=== PATIENT | male | born 1970 | race Caucasian/White ===

== ENCOUNTER 2022-09-10 12:21 | Emergency (ER) | payer SELFPAY ==
--- NOTE | ~2022-09-10 | XR_ITS ---
EXAMINATION: XR knee LT min 4V DATE: 09/10/2022 12:59 INDICATION: Left knee pain. TECHNIQUE: 4 views of left knee were obtained. COMPARISON: None. FINDINGS: Bone alignment is normal. No fracture. There is mild tricompartmental osteoarthritis charac terized by tiny osteophytes without joint space narrowing. No knee joint effusion. IMPRESSION: 1. Mild left knee osteoarthritis. Reviewed, dictated and finalized at location A. 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
--- NOTE | ~2022-09-10 | US_ITS ---
Duplex Sonography of the left extremity: Indication: Pain swelling Findings: Sagittal and transverse B-mode images as well as color-flow imaging were performed on the l eft femoral and popliteal veins. B-mode examination was done without and with compression in the tra nsverse plane. There is good visualization of the common femoral, proximal profunda femoral, superfi cial femoral, greater saphenous, and popliteal veins. Normal flow was seen on color-flow imaging. No rmal compressibility was demonstrated. Posterior tibial and peroneal veins are also patent. Impression: No evidence of deep vein thrombosis involving the left lower extremity. Reviewed, dictated and finalized at location M. 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
[2022-09-10 12:23] VITALS: BP 168/97; PULSE 102; RESP 18; TEMP 36.8; O2SAT 100
--- NOTE | 2022-09-10 13:22 | ED.EXTPRO ---
HPI - Extremity Problem General Chief complaint: Extremity Problem,Nontraumatic Stated complaint: left knee pain, swelling Time Seen by Provider: 09/10/22 12:32 Source: patient Mode of arrival: ambulatory Limitations: no limitations History of Present Illness HPI Narrative: This is a 52-year-old male that presents to the emergency department for a left knee injury sustained a couple of weeks ago. Reports he chronically has trouble with the left knee giving out on him. He was walking and the knee gave out on [facility]. Reports since he has had pain and swelling in the knee and going down into his foot. He has been taking ibuprofen with some relief. 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 He had some tingling in the toes of his left foot intermittently which prompted him to be seen. Denies fever, decreased range of motion, erythema, numbness, or weakness Related Data Allergies Allergy/AdvReac Type Severity Reaction Status Date / Time No Known Allergies Allergy Unknown Unverified 02/16/08 18:29 Review of Systems Review of Systems: CONSTITUTIONAL: Denies fever SKIN: Denies rash MUSCULOSKELETAL: Reports joint pain, and myalgia. NEUROLOGIC: Denies numbness, or weakness. All systems reviewed & are unremarkable except as noted in HPI and below PMFSH Past Medical History Medical History (Updated 09/10/22 @ 14:52 by Krys Norman PA-C) No active medical problems Social History Social History (Updated 09/10/22 @ 13:25 by Krys Norman PA-C) Smoking status: Current every day smoker Exam Narrative: GENERAL: Well-appearing, well-nourished, and in no acute distress. HEAD: Normocephalic, atraumatic. EYES: EOMI. EXTREMITIES: Normal range of motion. No erythema. Swelling about the left knee and into the lower leg and foot. Normal DP pulse SKIN: Warm, dry, no rash. NEURO: No focal deficits. Alert and oriented x3. PSYCH: Normal mood and affect Course Course Emergency Course: Patient updated on work-up and agrees with plan of care Vital Signs Vital signs: Vital Signs Temperature 98.3 F 09/10/22 12:23 Pulse Rate 102 H 09/10/22 12:23 Respiratory Rate 18 09/10/22 12:23 Blood Pressure 168/97 H 09/10/22 12:23 Pulse Oximetry 100 09/10/22 12:23 Oxygen Delivery Room Air 09/10/22 12:23 Temperature 98.3 F 09/10/22 12:23 Pulse Rate 102 H 09/10/22 12:23 Respiratory Rate 18 09/10/22 12:23 Blood Pressure 168/97 H 09/10/22 12:23 Pulse Oximetry 100 09/10/22 12:23 Oxygen Delivery Room Air 09/10/22 12:23 MDM - Extremity (Nontraumatic) MDM Narrative Medical decision making narrative: Patient presents to the emergency department after a left knee injury sustained a couple of weeks prior. Reporting persistent knee pain and some swelling going down into his lower leg and foot. He is afebrile and nontoxic-appearing. He is neurovascularly intact. CBC is without leukocytosis. Metabolic panel without concerning findings. Left knee x-ray shows some mild osteoarthritis. No acute osseous abnormalities or joint effusion. Left lower extremity venous Doppler without evidence of DVT. Patient was updated on work-up and agrees with plan of care. Will be given follow-up with orthopedics. He was given warnings to return to the ER Differential Diagnosis Differential diagnosis: Likely other (knee sprain, DVT, knee fracture, bakers cyst) Lab Data Attestation: I reviewed the patient's lab results. 09/10/22 13:28 09/10/22 13:28 Labs: Lab Results 09/10/22 09/10/22 09/10/22 Range/Units 13:28 13:28 13:28 WBC 7.5 (4.5-10.0) K/mm3 RBC 5.04 (4.6-6.20) M/mm3 Hgb 16.7 (14.0-18.0) g/dL Hct 48.4 (42.0-52.0) % MCV 96.0 (80-100) fl MCH 33.1 (26-34) pg MCHC 34.5 (32-36) g/dl RDW 13.5 (11.5-14.5) % Plt Count 263 (150-375) k/mm3 MPV 9.9 (7.4-10.4) fl Immature Gran % (Auto) 0.5 (0-0.5) % Neut % (Auto) 7
[2022-09-10 13:36] LABS: Basophils Absolute Auto 0.1 K/mm3 (0.0-0.1); Basophils Percent Auto 0.8 % (0.2-1.2); Eosinophils Absolute Auto 0.2 K/mm3 (0-0.3); Eosinophils Percent Auto 2.3 % (0-4.4); Hematocrit 48.4 % (42.0-52.0); Hemoglobin 16.7 g/dL (14.0-18.0); Immature Granulocyte Absolute 0.04 K/mm3 (0.00-0.031); Immature Granulocyte Percent A 0.5 % (0-0.5); Lymphocytes Percent Auto 13.4 % (18.3-44.2); Mean Corpuscular HGB Conc 34.5 g/dl (32-36); Mean Corpuscular Hemoglobin 33.1 pg (26-34); Mean Platelet Volume 9.9 fl (7.4-10.4); Monocytes Absolute Auto 0.7 K/mm3 (0.1-0.6); Monocytes Percent Auto 9.5 % (2.6-8.5); Neutrophils Absolute Auto 5.5 K/mm3 (1.3-6.7); Neutrophils Percent Auto 73.5 % (45.5-73.1); Platelet Count Result 263 k/mm3 (150-375); Red Blood Count 5.04 M/mm3 (4.6-6.20); Red Cell Distribution Width 13.5 % (11.5-14.5); White Blood Count 7.5 K/mm3 (4.5-10.0)
[2022-09-10 13:46] LABS: Anion Gap 6 mmol/L (8-16); Blood Urea Nitrogen 13 mg/dL (9-20); Calcium 9.1 mg/dL (8.4-10.2); Carbon Dioxide 27 mmol/L (22-30); Chloride 101 mmol/L (98-107); Estimated CRCL calculation 123 ml/min; Estimated Glomerular Filt Rate > 60; Glucose 146 mg/dL (65-110); Sodium 134 mmol/L (137-145)
[2022-09-10 13:47] LABS: Prothrombin Time 12.4 Seconds (11.1-14.7)
[2022-09-10 13:48] LABS: Partial Thromboplastin Time 29.4 SECONDS (22.3-36.8)
[2022-09-10 14:57] VITALS: BP 149/97; PULSE 96; RESP 18; O2SAT 100
== END 2022-09-10 14:58 | disposition home or self-care (01) ==
PROVIDERS: Emergency Provider Physician Assistant; PCP Family Medicine
DX: S83.92XA Sprain of unspecified site of left knee, initial encounter (principal); F17.200 Nicotine dependence, unspecified, uncomplicated; M17.12 Unilateral primary osteoarthritis, left knee; W18.39XA Other fall on same level, initial encounter
CPT/HCPCS: 36415; 73564; 80048; 85025; 85610; 85730; 93971; 99284

== ENCOUNTER 2024-02-25 08:29 | Inpatient (IN) | payer MEDICAID, SELFPAY ==
[2024-02-25] VITALS (16 sets, daily range): BP systolic 150–176; BP diastolic 93–127; PULSE 62–129; RESP 14–30; TEMP 36.6–36.9; O2SAT 94–97; BMI 29.9
--- NOTE | ~2024-02-25 | XR_ITS ---
XR chest 1V 02/25/2024 09:03 Indication: Altered mental status. Tremor. Procedure: AP view of the chest Comparison: No prior studies for comparison. Findings: Heart size normal. No focal air space disease, pulmonary edema, pleural effusion or suspect ed pneumothorax. Impression: 1: No acute cardiopulmonary disease. Reviewed, dictated and finalized at location B. Impression: 1: No acute cardiopulmonary disease.
--- NOTE | ~2024-02-25 | MR_ITS ---
EXAMINATION: MR brain/brain stem wo/w con DATE: 02/26/2024 12:47 INDICATION: Confusion, tremor and possible seizures TECHNIQUE: Magnetic resonance imaging (MRI) of the brain and brainstem was performed without and with 20 mL Multihance intravenous contrast. Sequences included sagittal and axial T1-weighted SE, axial d iffusion-weighted FS SE, axial T2*-weighted GRE, axial 3D SWAN, axial T2-weighted FLAIR, and axial T2 -weighted FSE. Postcontrast axial and coronal T1-weighted SE was obtained. Apparent diffusion coeffic ient (ADC) maps were created. COMPARISON: Head CT dated 02/25/2024 FINDINGS: There are no areas of restricted diffusion to suggest acute infarction. No intracranial hemorrhage or abnormal intracranial mass lesion. A few small infarcts in the bilateral cerebellar hemispheres. The re are scattered areas of nonspecific increased T2-weighted signal intensity in the cerebral white ma tter, predominantly involving the deep and periventricular white matter which is within normal limits for age and likely represents sequela of chronic small vessel ischemic disease.. There are no intrap arenchymal signal abnormalities seen on the other pulse sequences. The ventricles are symmetric and n ormal in size. There are no abnormal extra-axial fluid collections. Flow voids are seen in the cerebr al arteries on the T2-weighted sequences consistent with their expected patency. Left vertebral arter y is dominant. Mild mucosal thickening the bilateral ethmoid sinuses. Small amount of dependent mucus in the bilateral maxillary sinuses. Visualized orbits and soft tissues are unremarkable. There are n o areas of abnormal enhancement on the post contrast images. IMPRESSION: 1. No acute intracranial process. 2. A few small infarcts in the bilateral cerebellar hemispheres and small amount of scattered mesente daniella white matter T2 hyperintensity likely sequela of chronic small vessel ischemic disease. Reviewed, dictated and finalized at location A. IMPRESSION: 1. No acute intracranial process. 2. 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
--- NOTE | ~2024-02-25 | XR_ITS ---
Portable chest x-ray Comparison: 02/25/2024 Clinical History: Chest pain Findings: Questionable minimal haziness right mid lung. Left lung clear. Cardiomediastinal silhouet te is stable. Bones and soft tissues are unremarkable. Impression: Questionable minimal haziness right mid lung. Correlate for subtle pneumonia. Reviewed, dictated and finalized at [facility]. Impression: Questionable minimal haziness right mid lung. Correlate for subtle pneumonia.
--- NOTE | ~2024-02-25 | US_ITS ---
EXAMINATION: US carotid duplex BI DATE: 02/26/2024 20:20 INDICATION: Cerebrovascular disease with acute infarcts TECHNIQUE: Grayscale, color Doppler, and pulsed Doppler images of the cervical carotid arteries were obtained. The degree of vessel stenosis is placed in one of the following categories: normal, <50%, 5 0-69%, >=70% but less than near-occlusion, near-occlusion, or total occlusion. Note that percent sten osis relative to normal distal artery lumen diameter is indirectly measured from velocity measurement s as described by Tc, et al. Radiology 2003; 229:340-346. COMPARISON: None. FINDINGS: RIGHT: The right common carotid artery (CCA) peak systolic velocity (PSV) is 66 cm/s. The right internal car otid artery (ICA) PSV is 54 cm/s. The right ICA end-diastolic velocity (EDV) is 23 cm/s. The right IC A/CCA PSV ratio is 0.8. Grayscale and color Doppler images yield an estimate of <50% diameter reducti on from plaque in the ICA. The external carotid artery (ECA) PSV is 66 cm/s. There is antegrade flow in the right vertebral artery. LEFT: The left CCA PSV is 97 cm/s. The left ICA PSV is 59 cm/s. The left ICA EDV is 20 cm/s. The left ICA/C CA PSV ratio is 0.6. Grayscale and color Doppler images yield an estimate of <50% diameter reduction from plaque in the ICA. The ECA PSV is 77 cm/s. There is antegrade flow in the left vertebral artery. IMPRESSION: 1. <50% stenosis in the right internal carotid artery. 2. <50% stenosis in the left internal carotid artery. Reviewed, dictated and finalized at location A.
--- NOTE | ~2024-02-25 | CT_ITS ---
EXAMINATION: CT BRAIN W/O DATE: 02/25/2024 09:01 INDICATION: Altered mental status TECHNIQUE: Computed tomography (CT) of the head was performed without intravenous contrast. The dose- length product was 756.67 mGy-cm. Automated exposure control and iterative reconstruction technique w ere employed. COMPARISON: No prior studies for comparison. FINDINGS: Normal brain parenchymal volume for age. Normal yi-white differentiation. No acute intrac ranial hemorrhage, infarction, mass or mass effect. There is a small chronic lacunar infarction of th e left cerebellum. There are scattered mild periventricular and subcortical white matter changes, mos t likely related to small vessel ischemic disease (microangiopathy). No ventriculomegaly or midline shift. Midline sagittal images demonstrate a normal corpus callosum, c raniovertebral junction and sella turcica. Basilar cisterns are patent. Paranasal sinuses and mastoids are pneumatized. No depressed skull fractures. IMPRESSION: 1. No acute intracranial abnormality. 2: Small chronic left cerebellar infarction. Reviewed, dictated and finalized at location B.
--- NOTE | ~2024-02-25 | CT_ITS ---
EXAMINATION: CTA chest DATE: 03/01/2024 14:38 INDICATION: Shortness of breath. TECHNIQUE: Computed tomographic angiography (CTA) of the chest was performed with 100 mL Omnipaque-35 0 intravenous contrast. Automated exposure control and iterative reconstruction technique were employ ed. The dose-length product was 612.72 mGy-cm. Maximum intensity projection 3D-reconstructions of the aorta and other arteries were constructed by the technologist on a separate workstation. COMPARISON: None. FINDINGS: There is mild emphysema. There is mild atelectasis bilaterally. There are peripheral ground glass opacities in right middle lobe and right upper lobe. No pleural effusion. The heart size is nor mal. No pericardial effusion. There are coronary artery calcifications. There is no pulmonary embolus . There is mild aortic atherosclerosis. No aneurysm or dissection. Bilateral gynecomastia is noted. T here is cortical thinning of left kidney. There is mild thoracic spondylosis. IMPRESSION: 1. Mild aortic atherosclerosis. No aneurysm or dissection. 2. Mild emphysema. 3. Groundglass opacities in right upper lobe and right middle lobe, consistent with mild pneumonia ve rsus mild pulmonary edema. Reviewed, dictated and finalized at location A. IMPRESSION: 1. Mild aortic atherosclerosis. No aneurysm or dissection. 2. Mild emphysema. 3. Groundglass opacities in right upper lobe and right middle lobe, consistent with mild pneumonia versus mild pulmonary edema.
--- NOTE | 2024-02-25 08:43 | ED.AMS ---
HPI - Altered Mental Status General Chief Complaint: Altered Mental Status Stated Complaint: AMS Time Seen by Provider: 02/25/24 08:35 History of Present Illness HPI narrative: Pt presents with altered mental status and shakiness this morning. Per . Pt was confused and not acting right. Was confusing bottle of water with nasal spray and tried to drink nasal spray. Pt was smelling burnt toast when there was no toast made and was making inappropriate comments when questioned. the symptoms were first noted at 0530 but not sure if started prior to this because was asleep. Pt right side seems to be not responding right. Pt can move it but is having trouble controlling it. Pt has shakes. Pt is regular drinker and has pint of vodka each evening and drank last night but has never had DT's or seizures. Related Data Home Medications Medication Instructions Recorded Confirmed No Home Medications 02/25/24 02/25/24 Allergies Allergy/AdvReac Type Severity Reaction Status Date / Time No Known Allergies Allergy Unknown Unverified 02/16/08 18:29 Review of Systems Review of Systems: All systems reviewed & are unremarkable except as noted in HPI and below PMFSH Past Medical History Medical History (Updated 02/25/24 @ 10:40 by James Edwards III, DO) No active medical problems Social History Social History (Updated 09/10/22 @ 13:25 by Krys Norman PA-C) Smoking packs per day: 1 Smoking cigarettes per day: 20.0 Years smoked: 45 Smoking pack-years: 45.00 Smoking status: Current every day smoker Tobacco type: cigarettes Additional smoking assessment comments: smoking since grade school Alcohol intake: current Substance use: never Last use: pt drinks 1l vodka daily- last drink was yesterday Do You Feel Safe in your Home?: Yes Lack of Transportation: No Lack of Food: Sometimes True Current Housing: I Have Housing Concerned About Future Housing: YES Difficulty Paying Gas/Electric Bills: No Difficulty Paying for Meds: YES Currently Unemployed: YES Education: Don't Know Difficulty w/ Childcare or Family Care: No Spiritual care concerns: No Exam Const: General: healthy appearing and no acute distress Nutritional Appearance: well nourished Orientation/consciousness: patient oriented x3 Limitations: altered mental status HENMT: Head: normal to inspection Mouth: Yes Normal oral and palatal mucosa present Eyes: Conjunctivae: conjunctivae normal Pupils: Equal, round and reactive pupils present Neck: Neck: normal visual inspection Resp: Effort & Inspection: normal respiratory effort Auscultation: clear to auscultation bilaterally Cardio: Rate: regular rate Rhythm: regular rhythm GI: GI Palp: Yes Soft to palpation Auscultation: normal bowel sounds Skin: General skin exam: normal color Rashes: no rashes Neuro: Cranial nerves: Yes Nystagmus present Other: pt answers some question appropriately and others makes no sense. Pt has good strength but has trouble controlling right side especially RLE. Extrem: General: normal to inspection and no clubbing, cyanosis or edema Psych: Affect: normal affect Attitude: cooperative Course Vital Signs Vital signs: Vital Signs Temperature 98 F 02/25/24 08:36 Pulse Rate 129 H 02/25/24 08:36 Respiratory Rate 18 02/25/24 08:36 Blood Pressure 170/127 H 02/25/24 08:36 Pulse Oximetry 95 02/25/24 08:36 Oxygen Delivery Room Air 02/25/24 08:36 Temperature 98.4 F 02/25/24 14:00 Pulse Rate 110 H 02/25/24 17:12 Respiratory Rate 28 H 02/25/24 14:00 Blood Pressure 153/93 H 02/25/24 18:01 Pulse Oximetry 96 02/25/24 14:00 Oxygen Delivery Room Air 02/25/24 15:28 MDM - Altered Mental Status MDM Narrative Medical decision making narrative: Pt presents with confusion and difficulty controlling right side and shakes. CT and CVA ork up initiated. EKG non acute CT shows no b
[2024-02-25 08:45] LABS: Glucose Point of Care 162 mg/dl (65-105)
[2024-02-25] MEDS: SODIUM CHLORIDE 0.9% IV 1,000 ML 999 ML IV CONT (08:48)
[2024-02-25 09:15] LABS: Basophils Absolute Auto 0.1 K/mm3 (0.0-0.1); Basophils Percent Auto 0.6 % (0.2-1.2); Eosinophils Percent Auto 0.2 % (0-4.4); Hematocrit 49.2 % (42.0-52.0); Immature Granulocyte Absolute 0.05 K/mm3 (0.00-0.031); Immature Granulocyte Percent A 0.4 % (0-0.5); Lymphocytes Absolute Auto 0.65 K/mm3 (0.9-3.2); Lymphocytes Percent Auto 5.6 % (18.3-44.2); Mean Corpuscular HGB Conc 34.6 g/dl (32-36); Mean Corpuscular Hemoglobin 32.8 pg (26-34); Mean Platelet Volume 10.5 fl (7.4-10.4); Monocytes Absolute Auto 0.9 K/mm3 (0.1-0.6); Monocytes Percent Auto 7.7 % (2.6-8.5); Neutrophils Percent Auto 85.5 % (45.5-73.1); Platelet Count Result 232 k/mm3 (150-375); Red Blood Count 5.18 M/mm3 (4.6-6.20); White Blood Count 11.7 K/mm3 (4.5-10.0)
[2024-02-25 09:28] LABS: Acetaminophen < 10 ug/mL (10-30); Ammonia < 9 umol/L (9-30); Ethanol < 10 mg/dL (<10); Salicylate < 1.0 mg/dL (2-20)
[2024-02-25 09:29] LABS: INR 0.9; Prothrombin Time 12.7 Seconds (11.1-14.7)
[2024-02-25 09:30] LABS: Partial Thromboplastin Time 26.5 Seconds (22.3-36.8)
[2024-02-25 09:44] LABS: Alanine Aminotransferase 59 U/L (6-50); Albumin Level 4.7 g/dL (3.5-5.1); Alkaline Phosphatase 91 U/L (38-126); Anion Gap 15 mmol/L (4-12); Aspartate Amino Transferase 48 U/L (17-59); Bilirubin,Total 0.6 mg/dL (0.2-1.3); Blood Urea Nitrogen 9 mg/dL (9-20); Calcium 9.5 mg/dL (8.4-10.2); Carbon Dioxide 21 mmol/L (22-30); Chloride 106 mmol/L (98-107); Estimated CRCL calculation 111 ml/min; Estimated Glomerular Filt Rate > 60; Glucose 150 mg/dL (65-110); Potassium 3.4 mmol/L (3.4-5.0); Sodium 142 mmol/L (137-145)
[2024-02-25 09:56] LABS: Troponin I 0.015 ng/mL (0.000-0.034)
[2024-02-25 09:57] LABS: Lactic Acid Reflex 1.3 mmol/L (0.7-2.0)
[2024-02-25 11:23] LABS: Appearance Urine Clear (Clear); Bacteria Urine None Seen /hpf; Bilirubin Urine Negative (Negative); Blood Urine Negative (Negative); Color Urine Dark Yellow (Yellow); Glucose Urine UA Negative (Negative); Ketones Urine Trace mg/dL (Negative); Leukocyte Esterase Ur Negative LEU/UL (Negative); Nitrate Urine Negative (Negative); Non Pathogenic Casts 0-2; Protein Urine 1+ mg/dL (Negative); RBC Urine 0-2 /hpf (0-2); Specific Grav Ur 1.019 (1.001-1.035); Squamous Epithelial Cell Urine None Seen /hpf (Few); WBC Urine 0-5 /hpf (0-3)
[2024-02-25 11:26] LABS: Add Urine Microscopic? YES
[2024-02-25] MEDS: LORazepam INJ (*CRX) 2 MG/ML VIAL 1 MG IV PUSH (11:41)
[2024-02-25 11:46] LABS: Barbiturate Screen Urine Negative (Negative); Benzodiazepines Screen Urine Negative (Negative)
[2024-02-25 11:49] LABS: Amphetamine Screen Urine Negative (Negative); Cannabinoid Screen Urine Negative (Negative); Cocaine Screen Urine Negative (Negative); Methadone Screen Urine Negative (Negative); Opiate Screen Urine Negative (Negative); Phencyclidine Screen Urine Negative (Negative)
--- NOTE | 2024-02-25 12:54 | PC.NURSE ---
Per , patient drinks daily and has for the last 3 years. patient states he only drinks a pint a day, but states patient drinks more than that
--- NOTE | 2024-02-25 13:18 | ADMGEN ---
This patient, Bernardo Avelar, was admitted to Virtual Bed 3rd Floor-1. Patient/family oriented to hospital policies and general routines including ID bracelet, bed and alarms, visiting hours, pain management, procedures, bathroom and other care routines, personal items, smoking policy, room service/diet, and visiting hours. Information on how to activate the Rapid Response Team has been discussed. Patient/Family are encouraged to report perceived risks to care and to ask questions if they do not understand what they are told or what they should do.
--- NOTE | 2024-02-25 14:45 | PC.NURSE ---
Patient's spouse states that he drinks 1 handle of vodka over 2-3days. She reports patient drank his normal amount yesterday 02/23 prior to finding him this 02/25/24 at 0530 in an altered state
--- NOTE | 2024-02-25 16:10 | PM.IMHP ---
H&P: HPI History of Present Illness Date/Time: 02/25/24 16:10 Chief Complaint: Altered mental status. Narrative: This is a 53-year-old male smoker with history of alcohol abuse who presented to the emergency department via private vehicle from home accompanied by his for evaluation of altered mental status. The patient is able to provide some history however his provides the majority of the following given his confusion. He drinks a little over a pint of vodka each day and has for many years. He consumes his alcohol in the evenings after work and before he goes to bed. Last night he drank alcohol as per usual and seemed to be in his usual state of health. At a by 05:30 the patient's heard him making noise in the bedroom and when she entered the room she found that he had knocked over many items on his bedside table and he was sitting at the edge of the bed in a confused state. She noticed tremoring in his arms, more so on the right. He was attempting to drink nasal spray which he thought was water and he reported swelling burnt toast when there was no toast made. In the emergency department his noticed that he had frequent episodes where he seemed to go unresponsive with fine tremors of the arms and snoring respirations however his eyes were reportedly wide open. He did not appear to have suffered any falls or injury and there was no incontinence noted. He has never exhibited similar symptoms nor has he ever had symptoms of alcohol withdrawal or seizures. They were in [place] recently and he got many mosquito bites but has not exhibited any illness or fevers. He has not had any recent change in medication and he denies drug use. In the ED: He has been afebrile since arrival. Blood pressures have been as high as 174/114 (no known history of hypertension). He has been in sinus tachycardia with rates in the low 100s. Labs are significant for a WBC count of 11.7, carbon dioxide 21, anion gap 15, glucose 150, magnesium 1.5, ALT 59, CRP 0.8, procalcitonin 0.1, TSH 2.390, ammonia less than 9. Ethyl alcohol level was less than 10. Urine drug screen was negative. Urine was positive for 1+ protein and trace ketones. Head CT showed no acute intracranial abnormality but did note a small chronic left cerebellar infarction which is unknown to the patient and his . Chest x-ray showed no acute cardiopulmonary disease. He was given IV lorazepam and liter normal saline bolus and is being admitted in this setting for close monitoring and further evaluation. Review of Systems Review of Systems: 12 systems were reviewed and are negative except for as per HPI. [facility] Past Medical History Medical History (Updated 02/25/24 @ 21:10 by Eufemia Carter PA-C) Alcohol abuse Diverticulitis Tobacco dependence Surgical History Surgical History (Updated 02/25/24 @ 21:03 by Eufemia Carter PA-C) History of nasal septoplasty Status post urethral surgery As a child. Family History Family History (Updated 02/25/24 @ 21:03 by Eufemia Carter PA-C) Other Family history non-contributory Social History Social History (Updated 02/25/24 @ 21:04 by Eufemia Carter PA-C) Social History: Surrogate medical decision maker: Antonette Avelar, spouse. Code status: Full code. Smoking packs per day: 1 Smoking cigarettes per day: 20.0 Years smoked: 45 Smoking pack-years: 45.00 Smoking status: Current every day smoker Tobacco type: cigarettes Additional smoking assessment comments: Smoked since grade school. Alcohol intake: current Alcohol use details: At least 1 pint of vodka a day. Substance use: never Last use: pt drinks 1l vodka daily- last drink was yesterday Do You Feel Safe in your Home?: Yes Lack of Transportation: No Lack of Food: Sometimes True Current Housing: I Have Housing Concerned About Future Housing: YES Difficulty Paying Gas/Electric Bills: No Difficulty Paying for Meds: YES Joann
[2024-02-25] MEDS: LABETALOL HCL INJ 100 MG/20 ML VIAL 10 MG IV PUSH (17:12)
[2024-02-25] MEDS: DEXTROSE 5%/0.9% SOD CHL 1,000 ML 150 ML IV CONT (17:12)
[2024-02-25] MEDS: chlordiazePOXIDE (*CRX) 10 MG CAPSULE PO (17:13)
[2024-02-25] MEDS: THIAMINE HCL 200 MG/2 ML VIAL 100 MG IV PUSH (17:13)
[2024-02-25] MEDS: NICOTINE (*PBKC) 21 MG PATCH 1 PATCH TRANSDERM ×2 (17:55→21:20)
[2024-02-25 18:16] LABS: Influenza A QL RT-PCR Negative (Negative); Influenza B QL RT-PCR Negative (Negative); RSV RNA, RT-PCR Negative (Negative); SARS-CoV-2 RNA PCR Negative (Negative)
[2024-02-25 18:46] LABS: CRP 0.8 mg/dL (<1.0); Magnesium 1.5 mg/dL (1.6-2.3)
[2024-02-25 19:35] LABS: Procalcitonin 0.1 ng/mL
[2024-02-25] MEDS: LORazepam INJ (*CRX) 2 MG/ML VIAL IV PUSH ×2 (21:10→22:25)
[2024-02-25] MEDS: MAGNESIUM SULF 2 GM/WATER 50ML 2 GM/50 ML BAG IVPB (21:10)
--- NOTE | 2024-02-25 22:40 | PC.NURSE ---
2040 Notified Eufemia HALL about patient BP 169/100 HR 83 and too early give PRN labetalol. Eufemia asked for CIWA to be done. CIWA at 2039 was 9. New orders for PRN IV ativan given. Eufemia says to give 2mg IV ativan and then recheck BP in 30 Mins. 2109 IV ativan given 2199 Notified Eufemia of BP [id number] HR 100 and patient becoming more agitated and speech becoming more nonsensical. 2214 New CIWA score 20 Notified Eufemia. New order received for another Ativan 2 mg IVP and transfer orders to IMU. 0 IV Ativan given per orders. Patient conts to have increased agitation and picking a pulling lines. 0 Patient transferred to IMU . Report given at bedside to Chong HARRIS.
--- NOTE | 2024-02-25 23:06 | PC.NURSE ---
This patient, Bernardo Avelar, was received from [facility] on 02/25/24 at 2220. Patient/family oriented to unit policies and routines
[2024-02-25] MEDS: LACTATED RINGERS 1,000 ML 999 ML IV CONT (23:32)
[2024-02-25] MEDS: dexmedeTOMIDine 400 MCG/100 ML 400 MCG/100 ML BAG IV CONT (23:32)
--- NOTE | 2024-02-25 23:34 | PC.NURSE ---
This patient, Bernardo Avelar, was received from [[id number]] on 02/25/24 at 2334. Patient/family oriented to unit policies and routines
--- NOTE | 2024-02-25 23:37 | PC.NURSE ---
This patient, Bernardo Avelar, was transferred to ICU on 02/25/24 at 2330. Personal belongings sent with patient. Report given to STEVEN Bolden. Appropriate documentation sent with patient.
--- NOTE | 2024-02-25 23:39 | PC.NURSE ---
Patient arrived to IMU 205-2 from 307 at 2220. Patient had received a total of 4 mg Ativan prior to transfer. Patient came to IMU very agitated and pulling equipment/clothes off with a CIWA of 36. I spoke to RAFAEL Alston, who made the decision to transfer the patient to ICU for Precedex drip. Patient transferred to ICU 5. Report given to STEVEN Bolden.
[2024-02-26] VITALS (22 sets, daily range): BP systolic 131–170; BP diastolic 77–110; PULSE 63–94; RESP 15–30; TEMP 36.5–37.2; O2SAT 91–97
--- NOTE | 2024-02-26 | ECHO_ITS ---
Patient Info Name: Bernardo Avelar Age: 53 years : 1970 Gender: Male Ht: 71 in Wt: 214 lbs BSA: 2.23 m2 HR: 69 bpm BP: 159 / 96 mmHg Technical Quality: Good Exam Date: 02/26/2024 7:47 AM Exam Location: Echo Lab Patient Status: Inpatient Admit Date: 02/26/2024 Staff Ordering Physician: Eufemia Carter PA-C Learning Officer: Soren Gutierrez RDCS Attending Provider: Niurka Lema MD Referring Physician: Raul SEXTON; Exam Type: CA echo doppler color flow Study Info Indications - Confusion - HTN Complete two-dimensional, color flow and Doppler transthoracic echocardiogram is performed. Summary 1. Complete two-dimensional, color flow and Doppler transthoracic echocardiogram is performed. 2. Left ventricular systolic function is severely globally reduced, estimated at 30-35%. 3. Left ventricular chamber dimension is moderately enlarged. 4. The left ventricular diastolic function is abnormal. 5. E/e' 10 is mildly elevated. 6. Global longitudinal strain is abnormal at -13.7%. 7. Left atrial chamber dimension is mildly enlarged. 8. There is mild aortic valve sclerosis. 9. There is mild mitral valve regurgitation. 10. No pulmonary hypertension, estimated pulmonary arterial systolic pressure is 31 mmHg. Left Ventricle E/e' 10 is mildly elevated. Global longitudinal strain is abnormal at -13.7%. Left ventricular systolic function is severely globally reduced, estimated at 30-35%. Left ventricular chamber dimension is moderately enlarged. The left ventricular diastolic function is abnormal. Right Ventricle Right ventricular systolic function is normal and with normal TAPSE 2.2 cm. Right ventricular chamber dimension is normal. Left Atria Left atrial chamber dimension is mildly enlarged. Right Atria Right atrial chamber dimension is normal. Aortic Valve The aortic valve is trileaflet. There is mild aortic valve sclerosis. There is no aortic valve stenosis. There is no aortic valve regurgitation. Pulmonic Valve There is no pulmonic regurgitation. Mitral Valve There is no mitral valve stenosis. There is mild mitral valve regurgitation. Tricuspid Valve There is no tricuspid valve regurgitation. No pulmonary hypertension, estimated pulmonary arterial systolic pressure is 31 mmHg. Pericardium/Pleural There is no pericardial effusion. Inferior Vena Cava Normal inferior vena cava with >50% collapse upon inspiration consistent with normal right atrial pressure, 5 mmHg. Aorta The aortic root size at the sinus of Valsalva is normal. Left Ventricular Outflow Tract Name Value Normal LVOT 2D LVOT Diameter 2.1 cm LVOT Doppler LVOT Peak Gradient 3 mmHg LVOT Mean Gradient 1 mmHg LVOT VTI 15 cm LVOT VTI/AV VTI Ratio 0.6 LVOT Stroke Volume 52 ml LVOT CO 3.5 l/min LVOT CI 1.6 l/min/m2 Pulmonic Valve Name Value Normal
--- NOTE | 2024-02-26 00:05 | PC.NURSE ---
This patient, Bernardo Avelar, was received from [facility] on 02/26/24 at 2330. Patient/family oriented to unit policies and routines
--- NOTE | 2024-02-26 02:13 | PC.NURSE ---
Patient extremely agitated trying to get out of bed and combative with staff. Received orders from Dr. Gallegos to increase Precedex drip to 0.7 mcg. Will continue to monitor.
[2024-02-26] MEDS: dexmedeTOMIDine 400 MCG/100 ML 400 MCG/100 ML BAG 14.61 MCG IV CONT ×2 (04:29→21:11)
[2024-02-26 05:00] LABS: Hematocrit 43.4 % (42.0-52.0); Mean Corpuscular HGB Conc 34.6 g/dl (32-36); Mean Corpuscular Hemoglobin 33.1 pg (26-34); Mean Corpuscular Volume 95.8 fl (80-100); Mean Platelet Volume 10.7 fl (7.4-10.4); Platelet Count Result 169 k/mm3 (150-375); Red Blood Count 4.53 M/mm3 (4.6-6.20); Red Cell Distribution Width 13.9 % (11.5-14.5); White Blood Count 8.1 K/mm3 (4.5-10.0)
[2024-02-26 05:13] LABS: Alanine Aminotransferase 43 U/L (6-50); Albumin Level 3.9 g/dL (3.5-5.1); Alkaline Phosphatase 75 U/L (38-126); Anion Gap 13 mmol/L (4-12); Aspartate Amino Transferase 35 U/L (17-59); Blood Urea Nitrogen 7 mg/dL (9-20); Calcium 8.9 mg/dL (8.4-10.2); Carbon Dioxide 22 mmol/L (22-30); Chloride 101 mmol/L (98-107); Estimated CRCL calculation 127 ml/min; Estimated Glomerular Filt Rate > 60; Glucose 124 mg/dL (65-110); Magnesium 1.8 mg/dL (1.6-2.3); Potassium 3.3 mmol/L (3.4-5.0); Sodium 136 mmol/L (137-145)
--- NOTE | 2024-02-26 08:05 | WPDCNINT ---
Assessment and Plan Assessment and plan (1) Altered mental status: Code(s): R41.82 - Altered mental status, unspecified Status: Acute Assessment and Plan: 02/25/2024: Patient presented the ED with altered mental status, tremors, confusion, delirium -alcohol levels were <10, ammonia levels were < 9 -CT scan of the brain on admission did not show any acute intracranial abnormality, small left chronic cerebellar infarcts -patient tremors had worsened overnight, CIWA scores were elevated requiring more Ativan -patient was accepted to the ICU for dexmedetomidine/Precedex infusion -continue CIWA protocol with p.r.n. Ativan -withdrawal precautions with bedside sitter (2) Alcohol abuse: Code(s): F10.10 - Alcohol abuse, uncomplicated Status: Acute Assessment and Plan: Patient drinks more than 1 pint of vodka every evening, -on arrival his alcohol level were <10 -came in with tremors, confusion, altered mental status, delirium -patient was given multiple doses of Ativan -now on Precedex infusion, continues to show signs of tremors but more awake, alert, oriented x3, follows simple commands in all extremities and answers to questions -will continue Precedex for now and continue to monitor -patient does have p.r.n. Ativan and CIWA protocol on board -will start Librium 25 mg p.o. q.6 hours -continue folic acid and thiamine (3) Tobacco dependence: Code(s): F17.200 - Nicotine dependence, unspecified, uncomplicated Status: Acute Assessment and Plan: Patient smokes 1 packet per day for almost 45 years. 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 on cessation of smoking and will continue to reiterate (4) Elevated blood pressure reading: Code(s): R03.0 - Elevated blood-pressure reading, without diagnosis of hypertension Status: Acute Assessment and Plan: Elevated blood pressures could be related to alcohol withdrawal -will add low-dose amlodipine (5) Electrolyte imbalance: Code(s): E87.8 - Other disorders of electrolyte and fluid balance, not elsewhere classified Status: Acute Assessment and Plan: Replace potassium and magnesium Plan DVT prophylaxis: SCDs Stress ulcer prophylaxis: Not indicated Nutrition: Regular diet Code Status: Full code Critical Care Time Spent: 48 minutes Due to a high probability of clinically significant, life threatening deterioration, the patient required my highest level of preparedness to intervene emergently and I personally spent this critical care time directly and personally managing the patient. This critical care time included obtaining a history; examining the patient; pulse oximetry; ordering and review of studies; arranging urgent treatment with development of a management plan; evaluation of patient's response to treatment; frequent reassessment; and discussions with other providers. It was exclusive of separately billable procedures and treating other patients and teaching time. Please see Assessment and Plan section and the rest of the note for further information on patient assessment and treatment This dictation may have been done utilizing a voice recognition system. Attempts have been made to correct errors. However, there may be uncorrected grammatical, spelling, and recognitions errors present. Urban Planner Consult Note Consult date: 02/27/24 Reason for consult: Alcohol intoxication and/or alcohol withdrawal, altered mental status, delirium, confusion, tremors HPI: Bernardo Avelar is a 53 year old male with past medical history of alcohol abuse, presented the ED from home accompanied by his for evaluation of altered mental status. Patient was found to be confused with altered mental status, delirium and tremors geospatial technologist on 02/25/2024. According the records dove found him having knocked over many things on his bedside table and he was confused and was having olfactory hallucination (he reported smelling but toast), kaylyn
[2024-02-26] MEDS: FOLIC ACID 1 MG TABLET PO (08:33)
[2024-02-26] MEDS: POTASSIUM CHLORIDE 20 MEQ PACKET (FOR LIQUID) 40 MEQ PO (08:33)
[2024-02-26] MEDS: THIAMINE HCL 100 MG TABLET PO (08:33)
[2024-02-26 08:42] LABS: Glucose Point of Care 148 mg/dl (65-105)
[2024-02-26] MEDS: MAGNESIUM SULF 2 GM/WATER 50ML 2 GM/50 ML BAG IVPB (09:00)
[2024-02-26] MEDS: amLODIPine BESYLATE 5 MG TABLET PO (11:51)
[2024-02-26] MEDS: chlordiazePOXIDE (*CRX) 25 MG CAPSULE PO ×2 (11:51→17:40)
[2024-02-26 11:55] LABS: Glucose Point of Care 169 mg/dl (65-105)
[2024-02-26] MEDS: LORazepam INJ (*CRX) 2 MG/ML VIAL IV PUSH (12:07)
[2024-02-26] MEDS: dexmedeTOMIDine 400 MCG/100 ML 400 MCG/100 ML BAG 12.18 MCG IV CONT (13:12)
--- NOTE | 2024-02-26 15:27 | PM.IMPN ---
Progress Note: A&P Assessment and Plan (1) Altered mental status: Code(s): R41.82 - Altered mental status, unspecified Status: Acute (2) Elevated blood pressure reading: Code(s): R03.0 - Elevated blood-pressure reading, without diagnosis of hypertension Status: Acute (3) Alcohol abuse: Code(s): F10.10 - Alcohol abuse, uncomplicated Status: Acute (4) Hypomagnesemia: Code(s): E83.42 - Hypomagnesemia Status: Acute (5) Tobacco dependence: Code(s): F17.200 - Nicotine dependence, unspecified, uncomplicated Status: Acute Plan The patient presented to the emergency department for evaluation of altered mental status as detailed in HPI. Labs, imaging, EKG, and all reports were personally reviewed. Etiology is not entirely clear. His findings are concerning for alcohol withdrawal however he drink his usual pint of vodka last evening, he has not cut back on his intake, and he has reportedly never showed signs or symptoms of withdrawal. Hypertensive encephalopathy is a possibility with blood pressures in the 170s over low 100s systolic but that seems to be a bit less likely. He was recently in [place] and had multiple mosquito bites that are still causing him pruritus however he has not had any symptoms of mosquito borne illness or any infection for that matter. Seizures are also consideration. At this time we will treat his elevated blood pressures and suspected alcohol withdrawal symptoms. Brain MRI and EEG have been ordered and neurology has been consulted. Likely admitted for severe alcholol with drawl Pt is restful on Precedex, CIWA scores and precautions in place Clonidine patch ordered Pt had Echo EEG and awaiting mRI brain Mri brain shows - . No acute intracranial process. 2. A few small infarcts in the bilateral cerebellar hemispheres and small amount of scattered mesenteric white matter T2 hyperintensity likely sequela of chronic small vessel ischemic disease. ECho shows EF of 30 % likely alcoholic cardiomyopathy will consult cardiology in Am Subjective Date/time seen: 02/26/24 15:27 Interval history: Pt admitted with alcholol with drawl CIWA worsening since admission Pt on precedex drip in ICU pt drinks 1 pint of vodka a day and started to get confused a shakey yesterday am 02/25 Pt is resting but bp remains high, clonidine patch started to control BP no shakes or tremors or hallucinations presently, long discussion with by the bedside Review of Systems Review of Systems: pt is restful now Exam Narrative: General: Well-developed, well-nourished Respiratory: Lungs are clear to auscultation bilaterally. Cardiovascular: Regular rate and rhythm with S1-S2. No murmur, rub, or gallop. Gastrointestinal: Abdomen is soft, nontender, and nondistended with positive bowel sounds. Skin: Warm and dry. A few healing, reported mosquito bites on the lower extremities. No rashes noted. Extremities: No cyanosis, clubbing, or edema. Radial and pedal pulses intact. No joint redness or swelling. Neurological: Alert and oriented x3; pt is resting in bed Psychiatric: Cooperative. Objective Data Vital Signs Vital Signs: Vital Signs - 24 hr 02/25/24 15:28 02/25/24 16:44 02/25/24 16:44 Temperature Pulse Rate Pulse Rate [Bilateral Pedal (Dorsalis Pedis) Palpation] Respiratory Rate Blood Pressure 176/106 H 174/111 H Pulse Oximetry Oxygen Delivery Room Air Fraction of Inspired Oxygen 02/25/24 16:00 02/25/24 17:12 02/25/24 18:01 Temperature Pulse Rate 104 H 110 H Pulse Rate [Bilateral Pedal (Dorsalis Pedis) Palpation] Respiratory Rate Blood Pressure 153/93 H Pulse Oximetry Oxygen Delivery Fraction of Inspired Oxygen 02/25/24 20:00 02/25/24 21:00 02/25/24 22:00 Temperature 36.6 C 36.6 C Pulse Rate 83 100 Pulse Rate [Bilateral Pedal (Dorsalis Pedis) Palpation] Respiratory Rate 20 20 Blo
[2024-02-26 17:46] LABS: Glucose Point of Care 151 mg/dl (65-105)
--- NOTE | 2024-02-26 18:35 | WPDNEURCNPN ---
Assessment and Plan Assessment and plan (1) Altered mental status: Code(s): R41.82 - Altered mental status, unspecified Status: Acute Assessment and Plan: He was very confused last night and required transfer from the floor to the ICU. He has been exhibiting signs there is suggestive of alcohol withdrawal. Nevertheless when he had the 1st spell at 5:00 a.m. in the morning is only 6-7 hours since he had the last drink and it is difficult to explain. generally the alcohol withdrawal spells can occur anywhere from 8 hours to a days but most commonly seen after 2-3 days. This will still need to be borne in mind. The possible cerebrovascular disease other etiology may also need to be considered. MRI of the brain does show some vascular disease. Patient also heavy smoker. However there is no evidence for any new stroke on diffusion scanning of the MRI of brain. (2) Alcohol abuse: Code(s): F10.10 - Alcohol abuse, uncomplicated Status: Acute Assessment and Plan: As noted above he has history of chronic alcohol drinking and drinks over 1 pt of vodka a day. This could be a separate issue and may require addressing by appropriate specialists. (3) Seizure disorder: Code(s): G40.909 - Epilepsy, unspecified, not intractable, without status epilepticus Status: Acute Assessment and Plan: This remains a question at this time. We are seeing withdrawal features or something else require some follow-up. At this time is being managed with the benzodiazepines and which is adequate. The supportive measures are in place as per the production graphic designer. I agree with this approach. Consult date: 02/26/24 HPI: Bernardo Avelar is a 53 year old male With history of alcoholism presented to the hospital with the description suggestive of possible seizure disorder however upon talking to his he was drinking the night before and went to sleep at usual time. Around 5:00 a.m. in the morning she heard the noise and a went to see her who appeared very confused and made some eye or comments. He told her that to white is a burning toast. And after being confused for a while that he went back to sleep and then he woke up again after 2 hours and was drinking of nasal spray thinking it was water. His eventually got concerned because of his behavior unchanged and brought him to the hospital. He drinks heavily on a daily basis up to 1 point of vodka or more. 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 Denies any other specific symptom. His was indeed very helpful in elucidating the history. He never had any seizure or head trauma in the past. MRI of the brain shows some vascular disease which will be addressed. Review of Systems Review of Systems: All systems reviewed & are unremarkable except as noted in HPI and below PMFSH Past Medical History Medical History (Updated 02/26/24 @ 18:40 by Keyona Moran MD) Alcohol abuse Diverticulitis Seizure disorder Tobacco dependence Surgical History Surgical History History of nasal septoplasty Status post urethral surgery As a child. Family History Family History Other Family history non-contributory Social History Social History Social History: Surrogate medical decision maker: Antonette Avelar, spouse. Code status: Full code. Smoking packs per day: 1 Smoking cigarettes per day: 20.0 Years smoked: 45 Smoking pack-years: 45.00 Smoking status: Current every day smoker Tobacco type: cigarettes Additional smoking assessment comments: Smoked since grade school. Alcohol intake: current Alcohol use details: At least 1 pint of vodka a day. Substance use: never Last use: pt drinks 1l vodka daily- last drink was yesterday Do
--- NOTE | 2024-02-26 19:09 | WPDNEURCNPN ---
Consult date: 02/26/24 HPI: Bernardo Avelar is a 53 year old male [facility] Past Medical History Medical History (Updated 02/26/24 @ 18:40 by Keyona Moran MD) Alcohol abuse Diverticulitis Seizure disorder Tobacco dependence Surgical History Surgical History History of nasal septoplasty Status post urethral surgery As a child. Family History Family History Other Family history non-contributory Social History Social History Social History: Surrogate medical decision maker: Antonette Avelar, spouse. Code status: Full code. Smoking packs per day: 1 Smoking cigarettes per day: 20.0 Years smoked: 45 Smoking pack-years: 45.00 Smoking status: Current every day smoker Tobacco type: cigarettes Additional smoking assessment comments: Smoked since grade school. Alcohol intake: current Alcohol use details: At least 1 pint of vodka a day. Substance use: never Last use: pt drinks 1l vodka daily- last drink was yesterday Do You Feel Safe in your Home?: Yes Lack of Transportation: No Lack of Food: Sometimes True Current Housing: I Have Housing Concerned About Future Housing: YES Difficulty Paying Gas/Electric Bills: No Difficulty Paying for Meds: YES Currently Unemployed: YES Education: Don't Know Difficulty w/ Childcare or Family Care: No Additional living arrangements comments: Lives with spouse in [place]. 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 Spiritual care concerns: No Meds Home Medications and Allergies Home Medications Medication Instructions Recorded Confirmed Type No Home Medications 02/25/24 02/25/24 History Allergies Allergy/AdvReac Type Severity Reaction Status Date / Time No Known Allergies Allergy Unknown Unverified 02/16/08 18:29 Vital Signs Vital Signs - 24 hr 02/25/24 20:00 02/25/24 21:00 02/25/24 22:00 Temperature 36.6 C 36.6 C Pulse Rate 83 100 Pulse Rate [Bilateral Pedal (Dorsalis Pedis) Palpation] Pulse Rate [Bilateral Radial] Respiratory Rate 20 20 Blood Pressure 169/100 H 151/98 H Pulse Oximetry 96 94 Oxygen Delivery Room Air Fraction of Inspired Oxygen 02/25/24 23:31 02/25/24 23:38 02/25/24 23:32 Temperature Pulse Rate 84 82 62 Pulse Rate [Bilateral Pedal (Dorsalis Pedis) Palpation] Pulse Rate [Bilateral Radial] Respiratory Rate 20 28 H 23 H Blood Pressure 150/99 H Pulse Oximetry 95 Oxygen Delivery Fraction of Inspired Oxygen 02/26/24 00:00 02/26/24 00:32 02/25/24 23:49 Temperature 37.2 C Pulse Rate 75 73 84 Pulse Rate [Bilateral Pedal (Dorsalis Pedis) Palpation] Pulse Rate [Bilateral Radial] Respiratory Rate 17 30 H 30 H Blood Pressure 138/77 Pulse Oximetry 97 Oxygen Delivery Fraction of Inspired Oxygen 02/26/24 01:32 02/26/24 02:08 02/26/24 00:00 Temperature Pulse Rate 67 81 85 Pulse Rate [Bilateral Pedal (Dorsalis Pedis) Palpation] Pulse Rate [Bilateral Radial] Respiratory Rate 27 H 27 H Blood Pressure Pulse Oximetry Oxygen Delivery Fraction of Inspired Oxygen 02/26/24 02:00 02/26/24 02:00 02/26/24 04:00 Temperature Pulse Rate 69 69 Pulse Rate [Bilateral Pedal (Dorsalis Pedis) Palpation] 86 Pulse Rate [Bilateral Radial] Respiratory Rate 26 H Blood Pressure 170/102 H 168/97 H Pulse Oximetry 95 Oxygen Delivery Fraction of Inspired Oxygen 02/26/24 04:00 02/26/24 04:00 02/26/24 04:29 Temperature 37.2 C Pulse Rate 64 65 66 Pulse Rate [Bilateral Pedal (Dorsalis Pedis) Palpation] Pulse Rate [Bilateral Radial] Respiratory Rate 15 22 H 21 H Blood Pressure 168/97 H Pulse Oximetry 95 Oxygen Delivery Fraction of Inspired Oxygen 02/26/24 04:29 02/26/24 04:00 07
--- NOTE | 2024-02-26 19:10 | P.NEURO_ITS ---
Neurology EEG Report General Information Date of Study: 02/26/24 TEST Electroencephalogram DIAGNOSIS possible seizures versus alcohol withdrawal CONDITION OF RECORDING bedside according EEG NUMBER [id number] CLINICAL HISTORY history of alcohol abuse and possible seizure-like spell EEG DESCRIPTION During wakefulness the background activity consists of posterior dominant alpha rhythm at approximately 10 hertz with an amplitude of 20-40 microvolts which appears well-formed and reactive to eye opening. Anteriorly low amplitude mixed frequency activity or at times muscle tension artifacts were seen. There is a mild anteroposterior gradient. During drowsiness attenuation of background activity is seen. Patient did not progress to stage 2 sleep. Photic stimulation or hyperventilation were not performed. IMPRESSION This is a normal EEG obtained during awake and drowsy states.
[2024-02-26 20:02] LABS: Cholesterol 176 mg/dL (0-200); HDL Direct 67 mg/dL; Triglycerides 118 mg/dL (<150)
[2024-02-26 20:04] LABS: Vitamin D 25 Hydroxy 31.1 ng/mL
[2024-02-26 20:24] LABS: LDL Cholesterol Direct 70 mg/dL; T4 Thyroxine 8.65 ug/dL (5.53-11.0)
[2024-02-26 21:14] LABS: Folic Acid 12.5 ng/mL (2.76->20)
--- NOTE | 2024-02-26 21:23 | PC.NURSE ---
2123: Update given to via telephone per her request.
[2024-02-27] VITALS (25 sets, daily range): BP systolic 111–161; BP diastolic 79–106; PULSE 72–128; RESP 15–31; TEMP 36.1–37.9; O2SAT 89–96
[2024-02-27] MEDS: ACETAMINOPHEN 325 MG TABLET 650 MG PO (00:14)
[2024-02-27] MEDS: chlordiazePOXIDE (*CRX) 25 MG CAPSULE PO ×4 (00:15→17:21)
[2024-02-27 00:21] LABS: Glucose Point of Care 145 mg/dl (65-105)
--- NOTE | 2024-02-27 00:40 | PC.NURSE ---
0031: Update given to via telephone.
[2024-02-27] MEDS: LABETALOL HCL INJ 100 MG/20 ML VIAL 10 MG IV PUSH ×2 (01:04→05:34)
[2024-02-27] MEDS: dexmedeTOMIDine 400 MCG/100 ML 400 MCG/100 ML BAG 14.61 MCG IV CONT (04:00)
[2024-02-27 04:26] LABS: Basophils Percent Auto 0.5 % (0.2-1.2); Eosinophils Absolute Auto 0.1 K/mm3 (0-0.3); Eosinophils Percent Auto 1.2 % (0-4.4); Hematocrit 47.4 % (42.0-52.0); Hemoglobin 16.5 g/dL (14.0-18.0); Immature Granulocyte Absolute 0.04 K/mm3 (0.00-0.031); Immature Granulocyte Percent A 0.5 % (0-0.5); Lymphocytes Absolute Auto 1.29 K/mm3 (0.9-3.2); Lymphocytes Percent Auto 15.8 % (18.3-44.2); Mean Corpuscular HGB Conc 34.8 g/dl (32-36); Mean Corpuscular Hemoglobin 33.1 pg (26-34); Mean Corpuscular Volume 95.2 fl (80-100); Mean Platelet Volume 10.7 fl (7.4-10.4); Monocytes Absolute Auto 0.7 K/mm3 (0.1-0.6); Monocytes Percent Auto 8.1 % (2.6-8.5); Neutrophils Percent Auto 73.9 % (45.5-73.1); Platelet Count Result 164 k/mm3 (150-375); Red Blood Count 4.98 M/mm3 (4.6-6.20); Red Cell Distribution Width 13.4 % (11.5-14.5); White Blood Count 8.2 K/mm3 (4.5-10.0)
[2024-02-27 04:40] LABS: Alanine Aminotransferase 42 U/L (6-50); Albumin Level 4.1 g/dL (3.5-5.1); Alkaline Phosphatase 94 U/L (38-126); Anion Gap 12 mmol/L (4-12); Aspartate Amino Transferase 31 U/L (17-59); Bilirubin,Total 1.1 mg/dL (0.2-1.3); Blood Urea Nitrogen 8 mg/dL (9-20); Carbon Dioxide 23 mmol/L (22-30); Chloride 99 mmol/L (98-107); Estimated CRCL calculation 125 ml/min; Estimated Glomerular Filt Rate > 60; Glucose 132 mg/dL (65-110); Lipase 26 U/L (23-300); Phosphorus 3.7 mg/dL (2.5-4.5); Potassium 3.5 mmol/L (3.4-5.0); Sodium 134 mmol/L (137-145)
[2024-02-27 04:45] LABS: Ammonia < 9 umol/L (9-30)
[2024-02-27 07:24] LABS: Glucose Point of Care 136 mg/dl (65-105)
--- NOTE | 2024-02-27 07:58 | WPDINTPN ---
Progress Note: A&P Assessment and Plan (1) Altered mental status: Code(s): R41.82 - Altered mental status, unspecified Status: Acute Assessment and Plan: 02/25/2024: Patient presented the ED with altered mental status, tremors, confusion, delirium -alcohol levels were <10, ammonia levels were < 9 -CT scan of the brain on admission did not show any acute intracranial abnormality, small left chronic cerebellar infarcts -patient tremors had worsened overnight, CIWA scores were elevated requiring more Ativan -patient was accepted to the ICU for dexmedetomidine/Precedex infusion, wean to off if possible -continue CIWA protocol with p.r.n. Ativan -withdrawal precautions with bedside sitter (2) Alcohol abuse: Code(s): F10.10 - Alcohol abuse, uncomplicated Status: Acute Assessment and Plan: Patient drinks more than 1 pint of vodka every evening, -on arrival his alcohol level were <10 -came in with tremors, confusion, altered mental status, delirium -patient was given multiple doses of Ativan -now on Precedex infusion, continues to show signs of tremors but more awake, alert, oriented x3, follows simple commands in all extremities and answers to questions -will continue Precedex for now and continue to monitor -patient does have p.r.n. Ativan and CIWA protocol on board -continue Librium 25 mg p.o. q.6 hours -continue folic acid and thiamine (3) Tobacco dependence: Code(s): F17.200 - Nicotine dependence, unspecified, uncomplicated Status: Acute Assessment and Plan: Patient smokes 1 packet per day for almost 45 years. -of career technical counselor patient on cessation of smoking and will continue to reiterate (4) Elevated blood pressure reading: Code(s): R03.0 - Elevated blood-pressure reading, without diagnosis of hypertension Status: Acute Assessment and Plan: Elevated blood pressures could be related to alcohol withdrawal -continue amlodipine - PRN labetalol (5) Electrolyte imbalance: Code(s): E87.8 - Other disorders of electrolyte and fluid balance, not elsewhere classified Status: Acute Assessment and Plan: Replace potassium (6) Cardiomyopathy: Code(s): I42.9 - Cardiomyopathy, unspecified Status: Acute Assessment and Plan: New onset cardiomyopathy could be related to ischemic, alcoholic -EKG: No showed voltage criteria for LVH, sinus rhythm - 02/25: Echocardiogram Summary 1. Complete two-dimensional, color flow and Doppler transthoracic echocardiogram is performed. 2. Left ventricular systolic function is severely globally reduced, estimated at 30-35%. 3. Left ventricular chamber dimension is moderately enlarged. 4. The left ventricular diastolic function is abnormal. 5. E/e' 10 is mildly elevated. 6. Global longitudinal strain is abnormal at -13.7%. 7. Left atrial chamber dimension is mildly enlarged. 8. There is mild aortic valve sclerosis. 9. There is mild mitral valve regurgitation. 10. No pulmonary hypertension, estimated pulmonary arterial systolic pressure is 31 mmHg. -have consulted Cardiology Plan DVT prophylaxis: SCDs Stress ulcer prophylaxis: Not indicated Nutrition: Regular diet Code Status: Full code Critical Care Time Spent: 32 minutes Due to a high probability of clinically significant, life threatening deterioration, the patient required my highest level of preparedness to intervene emergently and I personally spent this critical care time directly and personally managing the patient. This critical care time included obtaining a history; examining the patient; pulse oximetry; ordering and review of studies; arranging urgent treatment with development of a management plan; evaluation of patient's response to treatment; frequent reassessment; and discussions with other providers. It was exclusive of separately billable procedures and treating other patients and teaching time. Please see Assessment
--- NOTE | 2024-02-27 08:00 | ECG_ITS ---
Test Date: 2024-02-27 08:23:04 Measurements Intervals [place] Rate: 92 P: 47 KS: 155 QRS: 16 QRSD: 98 T: 54 QT: 381 QTc: 471 Interpretive Statements SINUS RHYTHM VOLTAGE CRITERIA FOR LVH BORDERLINE ECG No previous ECG available for comparison Electronically Signed On 02-27-2024 08:28:06 CDT by Aaron Aiken D.O.
[2024-02-27] MEDS: THIAMINE HCL 100 MG TABLET PO (08:24)
[2024-02-27] MEDS: FOLIC ACID 1 MG TABLET PO (08:24)
[2024-02-27] MEDS: amLODIPine BESYLATE 5 MG TABLET PO (08:24)
[2024-02-27] MEDS: POTASSIUM CHLORIDE 20 MEQ ER TABLET 40 MEQ PO (08:24)
--- NOTE | 2024-02-27 10:47 | PM.CNCAR ---
Assessment and Plan Assessment and plan (1) Cardiomyopathy: Code(s): I42.9 - Cardiomyopathy, unspecified Status: Acute Assessment and Plan: EF 30-35%. This is a new diagnosis. He is not in decompensated heart failure. 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 Monitor closely with addition of Entresto and Coreg (3) Alcohol abuse: Code(s): F10.10 - Alcohol abuse, uncomplicated Status: Acute Assessment and Plan: Withdrawal management per hospitalist (4) Altered mental status: Code(s): R41.82 - Altered mental status, unspecified Status: Acute Assessment and Plan: Improved History of Present Illness History of Present Illness Consult date/time: 02/27/24 10:47 Requesting physician: Corinna Gallegos MD Consult reason: Other (cardiomyopathy) Reason For Visit: AMS Narrative: Bernardo Avelar is a 53 year old male with alcohol abuse disorder. He comes into the hospital because of altered mental status and tremors. Cardiology is consulted because of cardiomyopathy. Patient denies any known cardiac history. He does state that he experiences shortness of breath intermittently and he has experienced paroxysmal nocturnal dyspnea and orthopnea for about 6 years. He also states that he feels palpitations sometimes. He denies any chest pain or swelling. He feels well currently and has no complaints aside from back pain which is chronic. Review of Systems Review of Systems: All systems reviewed & are unremarkable except as noted in HPI and below PMFSH Past Medical History Medical History Alcohol abuse Diverticulitis Seizure disorder Tobacco dependence Surgical History Surgical History History of nasal septoplasty Status post urethral surgery As a child. Family History Family History Other Family history non-contributory Social History Social History Social History: Surrogate medical decision maker: Antonette Avelar, spouse. Code status: Full code. Smoking packs per day: 1 Smoking cigarettes per day: 20.0 Years smoked: 45 Smoking pack-years: 45.00 Smoking status: Current every day smoker Tobacco type: cigarettes Additional smoking assessment comments: Smoked since grade school. Alcohol intake: current Alcohol use details: At least 1 pint of vodka a day. Substance use: never Last use: pt drinks 1l vodka daily- last drink was yesterday Do You Feel Safe in your Home?: Yes Lack of Transportation: No Lack of Food: Sometimes True Current Housing: I Have Housing Concerned About Future Housing: YES Difficulty Paying Gas/Electric Bills: No Difficulty Paying for Meds: YES Currently Unemployed: YES Education: Don't Know Difficulty w/ Childcare or Family Care: No Additional living arrangements comments: Lives with spouse in [place]. 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 Spiritual care concerns: No Meds Home Medications and Allergies Home Medications Medication Instructions Recorded Confirmed Type No Home Medications 02/25/24 02/25/24 History Allergies Allergy/AdvReac Type Severity Reaction Status Date / Time No Known Allergies Allergy Unknown Unverified 02/16/08 18:29 Vital Signs Vital Signs - 24
[2024-02-27 11:25] LABS: Glucose Point of Care 135 mg/dl (65-105)
[2024-02-27] MEDS: ENOXAPARIN 40 MG/0.4 ML SYRINGE SUB-Q (11:42)
--- NOTE | 2024-02-27 13:29 | PM.IMPN ---
Progress Note: A&P Assessment and Plan (1) Altered mental status: Code(s): R41.82 - Altered mental status, unspecified Status: Acute (2) Elevated blood pressure reading: Code(s): R03.0 - Elevated blood-pressure reading, without diagnosis of hypertension Status: Acute (3) Alcohol abuse: Code(s): F10.10 - Alcohol abuse, uncomplicated Status: Acute (4) Hypomagnesemia: Code(s): E83.42 - Hypomagnesemia Status: Acute (5) Tobacco dependence: Code(s): F17.200 - Nicotine dependence, unspecified, uncomplicated Status: Acute Plan The patient presented to the emergency department for evaluation of altered mental status as detailed in HPI. Labs, imaging, EKG, and all reports were personally reviewed. Etiology is not entirely clear. His findings are concerning for alcohol withdrawal however he drink his usual pint of vodka last evening, he has not cut back on his intake, and he has reportedly never showed signs or symptoms of withdrawal. Hypertensive encephalopathy is a possibility with blood pressures in the 170s over low 100s systolic but that seems to be a bit less likely. He was recently in [place] and had multiple mosquito bites that are still causing him pruritus however he has not had any symptoms of mosquito borne illness or any infection for that matter. Seizures are also consideration. At this time we will treat his elevated blood pressures and suspected alcohol withdrawal symptoms. Brain MRI and EEG have been ordered and neurology has been consulted. Likely admitted for severe Alcohol withdrawl Pt is restful on Precedex, CIWA scores and precautions in place doing better today in icu may transfer to IMU later Clonidine patch ordered Pt had Echo EEG and awaiting MRI brain Mri brain shows - . No acute intracranial process. 2. A few small infarcts in the bilateral cerebellar hemispheres and small amount of scattered mesenteric white matter T2 hyperintensity likely sequela of chronic small vessel ischemic disease. Echo shows EF of 30 % likely alcoholic cardiomyopathy EEG is negative Pt seen by cardiology started on new cardiac medications Subjective Date/time seen: 02/27/24 13:29 Interval history: Pt admitted with alcohol withdrawl CIWA worsening since admission Pt on precedex drip in ICU pt drinks 1 pint of vodka a day and started to get confused a shakey yesterday am 02/25 Pt is resting but bp remains high, clonidine patch started to control BP no shakes or tremors or hallucinations presently, long discussion with by the bedside 02/26 Pt having some tremors in his hands otherwise vitals are more stable, pt is on Precedex drip in icu, transition to IMU when drip is stopped. Review of Systems Review of Systems: some tremors and shakes Exam Narrative: General: Well-developed, well-nourished Respiratory: Lungs are clear to auscultation bilaterally. Cardiovascular: Regular rate and rhythm with S1-S2. No murmur, rub, or gallop. Gastrointestinal: Abdomen is soft, nontender, and nondistended with positive bowel sounds. Skin: Warm and dry. A few healing, reported mosquito bites on the lower extremities. No rashes noted. Extremities: No cyanosis, clubbing, or edema. Radial and pedal pulses intact. No joint redness or swelling. Neurological: Alert and oriented x3; pt is resting in bed Psychiatric: Cooperative. Objective Data Vital Signs Vital Signs: Vital Signs - 24 hr 02/26/24 16:00 02/26/24 14:00 02/26/24 14:00 Temperature Pulse Rate 89 79 Pulse Rate [Bilateral Pedal (Dorsalis Pedis) Palpation] 84 Pulse Rate [Bilateral Radial] 84 Respiratory Rate 24 H Blood Pressure 138/94 H 148/97 H Pulse Oximetry 92 Oxygen Delivery 02/26/24 16:00 02/26/24 16:00 02/26/24 16:00 Temperature 37.0 C Pulse Rate 84 84 Pulse Rate [Bilateral Pedal (Dorsalis Pedis) Palpation] Pulse Rate [Bilateral Radial] Respiratory Rate
--- NOTE | 2024-02-27 15:42 | PC.NURSE ---
Call received from Dr. Encinas's office regarding pt's calling their office to possibly have patient transferred to another facility. Spoke with patient and family regarding concerns and wishes to be transferred. stated yes I called their office. Patient stated you did? as a question. expressed some of the concerns, stating I feel like I have so many questions but I don't know what the questions are, you know what I mean. She also stated I've been to him for 25 years, I know that the morning he came in was not withdraw. That episode was something different and that's what I want to figure out. I feel like everytime I talk to someone, I get a different answer. Patients states I feel like I'm getting better. I offered to call critical care doctor lupe, pt and both declined. I advised both to possibly write down any questions they may think of and they can ask them in the morning during patient rounds. Stated that would also be the time to ask about transfer to another facility if they still would like to at that time.
[2024-02-27 16:38] LABS: Glucose Point of Care 125 mg/dl (65-105)
[2024-02-27] MEDS: METOPROLOL TARTRATE INJ 5 MG/5 ML VIAL IV PUSH (17:13)
[2024-02-27] MEDS: carvediloL 3.125 MG TABLET PO (20:34)
[2024-02-27] MEDS: SACUBITRIL/VALSARTAN 24-26 MG TABLET 1 TAB PO (20:34)
[2024-02-27] MEDS: PHENYLEPHRINE 1% NA SPR (*BKC) 15 ML BTL 1 SPRAY NASAL (22:37)
[2024-02-27] MEDS: CALCIUM CARBONATE (TUMS) 500 MG (200 MG ELEMENTAL) PO (22:37)
[2024-02-28] VITALS (14 sets, daily range): BP systolic 106–150; BP diastolic 50–106; PULSE 82–129; RESP 14–28; TEMP 36.4–37.1; O2SAT 90–100
[2024-02-28] MEDS: ACETAMINOPHEN 325 MG TABLET 650 MG PO (00:04)
[2024-02-28 00:05] LABS: Glucose Point of Care 131 mg/dl (65-105)
[2024-02-28 04:07] LABS: Hematocrit 50.1 % (42.0-52.0); Hemoglobin 17.1 g/dL (14.0-18.0); Mean Corpuscular HGB Conc 34.1 g/dl (32-36); Mean Corpuscular Hemoglobin 32.8 pg (26-34); Mean Corpuscular Volume 96.2 fl (80-100); Mean Platelet Volume 10.7 fl (7.4-10.4); Platelet Count Result 186 k/mm3 (150-375); Red Blood Count 5.21 M/mm3 (4.6-6.20); Red Cell Distribution Width 13.7 % (11.5-14.5)
[2024-02-28 04:20] LABS: Anion Gap 12 mmol/L (4-12); Blood Urea Nitrogen 11 mg/dL (9-20); Calcium 9.5 mg/dL (8.4-10.2); Carbon Dioxide 22 mmol/L (22-30); Chloride 101 mmol/L (98-107); Estimated CRCL calculation 124 ml/min; Estimated Glomerular Filt Rate > 60; Glucose 109 mg/dL (65-110); Magnesium 2.1 mg/dL (1.6-2.3); Phosphorus 4.9 mg/dL (2.5-4.5); Potassium 3.8 mmol/L (3.4-5.0); Sodium 135 mmol/L (137-145)
[2024-02-28] MEDS: chlordiazePOXIDE (*CRX) 25 MG CAPSULE PO ×5 (05:34→23:45)
[2024-02-28] MEDS: SACUBITRIL/VALSARTAN 24-26 MG TABLET 1 TAB PO ×2 (08:03→20:14)
[2024-02-28] MEDS: FOLIC ACID 1 MG TABLET PO (08:03)
[2024-02-28] MEDS: THIAMINE HCL 100 MG TABLET PO (08:04)
[2024-02-28] MEDS: ENOXAPARIN 40 MG/0.4 ML SYRINGE SUB-Q (08:04)
[2024-02-28] MEDS: carvediloL 3.125 MG TABLET PO ×2 (08:04→20:13)
--- NOTE | 2024-02-28 09:25 | WPDINTPN ---
Progress Note: A&P Assessment and Plan (1) Altered mental status: Code(s): R41.82 - Altered mental status, unspecified Status: Acute Assessment and Plan: 02/25/2024: Patient presented the ED with altered mental status, tremors, confusion, delirium -alcohol levels were <10, ammonia levels were < 9 -CT scan of the brain on admission did not show any acute intracranial abnormality, small left chronic cerebellar infarcts -patient tremors had worsened overnight, CIWA scores were elevated requiring more Ativan -OFF dexmedetomidine/Precedex infusion, -continue CIWA protocol with p.r.n. Ativan (2) Alcohol abuse: Code(s): F10.10 - Alcohol abuse, uncomplicated Status: Acute Assessment and Plan: Patient drinks more than 1 pint of vodka every evening, -on arrival his alcohol level were <10 -came in with tremors, confusion, altered mental status, delirium -patient was given multiple doses of Ativan -now on Precedex infusion, continues to show signs of tremors but more awake, alert, oriented x3, follows simple commands in all extremities and answers to questions -Off Precedex -patient does have p.r.n. Ativan and CIWA protocol on board -continue Librium 25 mg p.o. q.6 hours -continue folic acid and thiamine (3) Tobacco dependence: Code(s): F17.200 - Nicotine dependence, unspecified, uncomplicated Status: Acute Assessment and Plan: Patient smokes 1 packet per day for almost 45 years. -counseled patient on cessation of smoking (4) Elevated blood pressure reading: Code(s): R03.0 - Elevated blood-pressure reading, without diagnosis of hypertension Status: Acute Assessment and Plan: Elevated blood pressures could be related to alcohol withdrawal -continue amlodipine - PRN labetalol (5) Electrolyte imbalance: Code(s): E87.8 - Other disorders of electrolyte and fluid balance, not elsewhere classified Status: Acute Assessment and Plan: stable potassium and magnesium (6) Cardiomyopathy: Code(s): I42.9 - Cardiomyopathy, unspecified Status: Acute Assessment and Plan: New onset cardiomyopathy could be related to ischemic, alcoholic -EKG: No showed voltage criteria for LVH, sinus rhythm - 02/25: Echocardiogram Summary 1. Complete two-dimensional, color flow and Doppler transthoracic echocardiogram is performed. 2. Left ventricular systolic function is severely globally reduced, estimated at 30-35%. 3. Left ventricular chamber dimension is moderately enlarged. 4. The left ventricular diastolic function is abnormal. 5. E/e' 10 is mildly elevated. 6. Global longitudinal strain is abnormal at -13.7%. 7. Left atrial chamber dimension is mildly enlarged. 8. There is mild aortic valve sclerosis. 9. There is mild mitral valve regurgitation. 10. No pulmonary hypertension, estimated pulmonary arterial systolic pressure is 31 mmHg. -appreciate cardiology evaulation and recommendation -continue Coreg and Entresto Plan DVT prophylaxis: SCDs Stress ulcer prophylaxis: Not indicated Nutrition: Regular diet Code Status: Full code Critical Care Time Spent: 31 minutes Due to a high probability of clinically significant, life threatening deterioration, the patient required my highest level of preparedness to intervene emergently and I personally spent this critical care time directly and personally managing the patient. This critical care time included obtaining a history; examining the patient; pulse oximetry; ordering and review of studies; arranging urgent treatment with development of a management plan; evaluation of patient's response to treatment; frequent reassessment; and discussions with other providers. It was exclusive of separately billable procedures and treating other patients and teaching time. Please see Assessment and Plan section and the rest of the note for further information on patient assessment and treatm
--- NOTE | 2024-02-28 13:19 | PM.PNCARD ---
Progress Note: A&P Assessment and Plan (1) Cardiomyopathy: Code(s): I42.9 - Cardiomyopathy, unspecified Status: Acute Plan Acute on chronic systolic heart failure ejection fraction 30-35% Possible alcohol-induced cardiomyopathy Alcohol abuse Tobacco abuse Altered mental status improved Plan Continue guideline directed medical therapy including spironolactone, Entresto and Coreg Evaluation for ischemic heart disease as outpatient Patient counseled to stop alcohol drinking completely Patient counseled. Small Add Lasix 40 mg p.o. daily Add spironolactone 25 mg daily Subjective Date/time seen: 02/28/24 13:19 Review of Systems Review of Systems: no acute events Still feels SOB and fatigue with activity All systems reviewed & are unremarkable except as noted in HPI and below Exam Const: General: comfortable and no acute distress Other: Able to lie flat HENMT: Face/Nose/Sinus: Normal nares present and no epistaxis Mouth: Yes moist mucous membranes Neck: Neck: supple and no JVD Carotids: no bruits Resp: Auscultation: clear to auscultation bilaterally and lung sounds not diminished Other: No chest wall tenderness Cardio: Rate: regular rate Rhythm: regular rhythm Heart sounds: no gallops, no murmurs and no rubs Extrem: General: no edema Other: Normal capillary refills Intact distal pulses. Objective Data Vital Signs Vital Signs: Vital Signs - 24 hr 02/27/24 14:00 02/27/24 14:00 02/27/24 16:00 Temperature Pulse Rate 104 H 104 H 121 H Pulse Rate [Bilateral Radial] Respiratory Rate 23 H Blood Pressure 135/92 H Pulse Oximetry 93 Oxygen Delivery Fraction of Inspired Oxygen 02/27/24 16:00 02/27/24 16:00 02/27/24 17:13 Temperature 37.9 C H Pulse Rate 121 H 126 H Pulse Rate [Bilateral Radial] Respiratory Rate 28 H Blood Pressure 137/93 H Pulse Oximetry 94 Oxygen Delivery Room Air Fraction of Inspired Oxygen 02/27/24 18:00 02/27/24 18:00 02/27/24 20:00 Temperature Pulse Rate 113 H 113 H Pulse Rate [Bilateral Radial] Respiratory Rate 23 H Blood Pressure 124/96 H Pulse Oximetry 96 Oxygen Delivery Room Air Fraction of Inspired Oxygen 02/27/24 20:00 02/27/24 20:34 02/27/24 20:36 Temperature 36.8 C Pulse Rate 128 H 128 H 128 H Pulse Rate [Bilateral Radial] Respiratory Rate 24 H 23 H Blood Pressure 140/95 H Pulse Oximetry 93 Oxygen Delivery Fraction of Inspired Oxygen 02/27/24 20:00 02/27/24 22:00 02/27/24 22:00 Temperature Pulse Rate 120 H 123 H 123 H Pulse Rate [Bilateral Radial] Respiratory Rate 23 H Blood Pressure 144/98 H Pulse Oximetry 95 Oxygen Delivery Fraction of Inspired Oxygen 02/28/24 00:00 02/28/24 00:00 02/28/24 00:00 Temperature 36.6 C Pulse Rate 120 H 116 H Pulse Rate [Bilateral Radial] Respiratory Rate 24 H Blood Pressure 150/82 H Pulse Oximetry 100 Oxygen Delivery Room Air Fraction of Inspired Oxygen 02/28/24 02:00 02/28/24 02:00 02/28/24 04:00 Temperature Pulse Rate 102 H 102 H Pulse Rate [Bilateral Radial] Respiratory Rate 20 Blood Pressure 106/78 Pulse Oximetry 90 Oxygen Delivery Room Air Fraction of Inspired Oxygen 02/28/24 04:00 02/28/24 04:00 02/28/24 06:00 Temperature 37.1 C Pulse Rate 118 H 129 H 110 H Pulse Rate [Bilateral Radial] Respiratory Rate 24 H Blood Pressure 128/93 H Pulse Oximetry 92 Oxygen Delivery Fraction of Inspired Oxygen 02/28/24 06:00 02/28/24 08:04 02/28/24 08:13 Temperature Pulse Rate 110 H 111 H 112 H Pulse Rate [Bilateral Radial] Respiratory Rate 28 H 16 Blood Pressure 130/90 Pulse Oximetry 92 97 Oxygen Delivery Room Air Fraction of Inspired Oxygen 21 02/28/24 08:00 02/28/24 08:00 02/28/24 08:00 Temperature 36.4 C Pulse Rate 110 H Pulse Rate [Bilateral Radial] 110 H Respiratory
--- NOTE | 2024-02-28 14:48 | PM.IMPN ---
Progress Note: A&P Assessment and Plan (1) Cardiomyopathy: Code(s): I42.9 - Cardiomyopathy, unspecified Status: Acute Plan Monitor sinus tachycardia. Possibly due to alcohol withdrawal. Continue CIWA. Subjective Date/time seen: 02/28/24 14:48 Interval history: Seen at bedside with present. Review of Systems Review of Systems: All systems reviewed & are unremarkable except as noted in HPI and below (Subjective) Exam Const: General: comfortable and no acute distress Eyes: Pupils: Equal, round and reactive pupils present Neck: Neck: supple Resp: Effort & Inspection: normal respiratory effort Auscultation: clear to auscultation bilaterally Cardio: Rate: tachycardic Rhythm: regular rhythm GI: GI Palp: Yes Soft to palpation and No Tenderness to palpation present (GI) Extrem: General: no edema Objective Data Vital Signs Vital Signs: Vital Signs - 24 hr 02/27/24 16:00 02/27/24 16:00 02/27/24 16:00 Temperature 100.2 F H Pulse Rate 121 H 121 H Pulse Rate [Bilateral Radial] Respiratory Rate 28 H Blood Pressure 137/93 H Pulse Oximetry 94 Oxygen Delivery Room Air Fraction of Inspired Oxygen 02/27/24 17:13 02/27/24 18:00 02/27/24 18:00 Temperature Pulse Rate 126 H 113 H 113 H Pulse Rate [Bilateral Radial] Respiratory Rate 23 H Blood Pressure 124/96 H Pulse Oximetry 96 Oxygen Delivery Fraction of Inspired Oxygen 02/27/24 20:00 02/27/24 20:00 02/27/24 20:34 Temperature 98.3 F Pulse Rate 128 H 128 H Pulse Rate [Bilateral Radial] Respiratory Rate 24 H Blood Pressure 140/95 H Pulse Oximetry 93 Oxygen Delivery Room Air Fraction of Inspired Oxygen 02/27/24 20:36 02/27/24 20:00 02/27/24 22:00 Temperature Pulse Rate 128 H 120 H 123 H Pulse Rate [Bilateral Radial] Respiratory Rate 23 H Blood Pressure Pulse Oximetry Oxygen Delivery Fraction of Inspired Oxygen 02/27/24 22:00 02/28/24 00:00 02/28/24 00:00 Temperature 97.8 F Pulse Rate 123 H 120 H Pulse Rate [Bilateral Radial] Respiratory Rate 23 H 24 H Blood Pressure 144/98 H 150/82 H Pulse Oximetry 95 100 Oxygen Delivery Room Air Fraction of Inspired Oxygen 02/28/24 00:00 02/28/24 02:00 02/28/24 02:00 Temperature Pulse Rate 116 H 102 H 102 H Pulse Rate [Bilateral Radial] Respiratory Rate 20 Blood Pressure 106/78 Pulse Oximetry 90 Oxygen Delivery Fraction of Inspired Oxygen 02/28/24 04:00 02/28/24 04:00 02/28/24 04:00 Temperature 98.7 F Pulse Rate 118 H 129 H Pulse Rate [Bilateral Radial] Respiratory Rate 24 H Blood Pressure 128/93 H Pulse Oximetry 92 Oxygen Delivery Room Air Fraction of Inspired Oxygen 02/28/24 06:00 02/28/24 06:00 02/28/24 08:04 Temperature Pulse Rate 110 H 110 H 111 H Pulse Rate [Bilateral Radial] Respiratory Rate 28 H Blood Pressure 130/90 Pulse Oximetry 92 Oxygen Delivery Fraction of Inspired Oxygen 02/28/24 08:13 02/28/24 08:00 02/28/24 08:00 Temperature Pulse Rate 112 H Pulse Rate [Bilateral Radial] 110 H Respiratory Rate 16 Blood Pressure 146/106 H Pulse Oximetry 97 Oxygen Delivery Room Air Room Air Fraction of Inspired Oxygen 21 02/28/24 08:00 02/28/24 08:00 02/28/24 10:00 Temperature 97.6 F Pulse Rate 110 H 111 H 120 H Pulse Rate [Bilateral Radial] Respiratory Rate 14 Blood Pressure 146/106 H Pulse Oximetry 97 Oxygen Delivery Fraction of Inspired Oxygen 02/28/24 10:00 02/28/24 12:00 02/28/24 12:00 Temperature Pulse Rate 120 H Pulse Rate [Bilateral Radial] 118 H Respiratory Rate 24 H Blood Pressure 136/95 H 136/80 Pulse Oximetry 94 Oxygen Delivery Room Air Fraction of Inspired Oxygen 02/28/24 12:00 02/28/24 12:00 Temperature 97.9 F Pulse Rate 118 H 114 H Pulse Rate [Bilateral Radial] Respiratory Rate 16 Blood Pressure 136/80 Pulse Oxi
--- NOTE | 2024-02-28 15:05 | PC.NURSE ---
Ambulated around unit twice with stand by assist. No issues with dizziness or lightheadedness. Elevated pulse rate to 130 sinus tachycardia while ambulating. Notified Dr. Landis.
[2024-02-28] MEDS: ASPIRIN 81 MG ENTERIC TABLET PO (15:32)
[2024-02-28] MEDS: ATORVASTATIN 40 MG TABLET PO (15:32)
--- NOTE | 2024-02-28 15:36 | PC.NURSE ---
Left message with care coordination regarding concerns of not being able to afford all the new medications that patient has been started on. Left message requesting them to come see him.
--- NOTE | 2024-02-28 15:42 | PC.NURSE ---
Spoke with Michelle in care coordination about his needs they will talk with him tomorrow. I gave his the social determinants list of medication assistance as well.
--- NOTE | 2024-02-28 17:32 | PC.NURSE ---
This patient, Bernardo Avelar, was transferred to [facility] on 02/28/24 at 1725. Personal belongings sent with patient. Report given to Koko. Appropriate documentation sent with patient.
[2024-02-29] VITALS (13 sets, daily range): BP systolic 110–143; BP diastolic 68–85; PULSE 90–125; RESP 16–20; TEMP 36.1–36.7; O2SAT 88–98
[2024-02-29] MEDS: chlordiazePOXIDE (*CRX) 25 MG CAPSULE PO ×2 (05:18→12:40)
[2024-02-29 06:20] LABS: Hematocrit 48.9 % (42.0-52.0); Hemoglobin 16.5 g/dL (14.0-18.0); Mean Corpuscular HGB Conc 33.7 g/dl (32-36); Mean Corpuscular Hemoglobin 33.3 pg (26-34); Mean Corpuscular Volume 98.6 fl (80-100); Mean Platelet Volume 10.8 fl (7.4-10.4); Platelet Count Result 200 k/mm3 (150-375); Red Blood Count 4.96 M/mm3 (4.6-6.20); Red Cell Distribution Width 13.9 % (11.5-14.5); White Blood Count 8.8 K/mm3 (4.5-10.0)
[2024-02-29 06:35] LABS: Anion Gap 13 mmol/L (4-12); Blood Urea Nitrogen 13 mg/dL (9-20); Calcium 9.3 mg/dL (8.4-10.2); Carbon Dioxide 19 mmol/L (22-30); Chloride 104 mmol/L (98-107); Estimated CRCL calculation 108 ml/min; Estimated Glomerular Filt Rate > 60; Glucose 115 mg/dL (65-110); Potassium 3.9 mmol/L (3.4-5.0); Sodium 136 mmol/L (137-145)
[2024-02-29] MEDS: ATORVASTATIN 40 MG TABLET PO (08:46)
[2024-02-29] MEDS: SACUBITRIL/VALSARTAN 24-26 MG TABLET 1 TAB PO ×2 (08:46→21:00)
[2024-02-29] MEDS: SPIRONOLACTONE 25 MG TABLET PO (08:46)
[2024-02-29] MEDS: carvediloL 3.125 MG TABLET PO ×2 (08:46→21:00)
[2024-02-29] MEDS: FOLIC ACID 1 MG TABLET PO (08:46)
[2024-02-29] MEDS: ASPIRIN 81 MG ENTERIC TABLET PO (08:46)
[2024-02-29] MEDS: THIAMINE HCL 100 MG TABLET PO (08:46)
[2024-02-29] MEDS: ENOXAPARIN 40 MG/0.4 ML SYRINGE SUB-Q (08:49)
--- NOTE | 2024-02-29 09:50 | PM.IMPN ---
Progress Note: A&P Assessment and Plan (1) Cardiomyopathy: Code(s): I42.9 - Cardiomyopathy, unspecified Status: Acute (2) Sinus tachycardia: Code(s): R00.0 - Tachycardia, unspecified Status: Acute Plan Holding Lasix since yesterday. Received spironolactone this morning. Hold spironolactone. He is euvolemic and has tachycardia. Do not want to make him hypovolemic. Will monitor tachycardia, sinus. Comprehensive review systems is negative. Subjective Date/time seen: 02/29/24 09:50 Interval history: Patient denies palpitations or chest pain. Review of Systems Review of Systems: All systems reviewed & are unremarkable except as noted in HPI and below (Subjective) Exam Const: General: comfortable and no acute distress Eyes: Pupils: Equal, round and reactive pupils present Neck: Neck: supple Resp: Effort & Inspection: normal respiratory effort Auscultation: clear to auscultation bilaterally Cardio: Rate: tachycardic Rhythm: regular rhythm GI: GI Palp: Yes Soft to palpation and No Tenderness to palpation present (GI) Extrem: General: no edema Objective Data Vital Signs Vital Signs: Vital Signs - 24 hr 02/28/24 10:00 02/28/24 10:00 02/28/24 12:00 Temperature Pulse Rate 120 H 120 H Pulse Rate [Bilateral Radial] 118 H Respiratory Rate 24 H Blood Pressure 136/95 H 136/80 Pulse Oximetry 94 Oxygen Delivery 02/28/24 12:00 02/28/24 12:00 02/28/24 12:00 Temperature 97.9 F Pulse Rate 118 H 114 H Pulse Rate [Bilateral Radial] Respiratory Rate 16 Blood Pressure 136/80 Pulse Oximetry 92 Oxygen Delivery Room Air 02/28/24 14:00 02/28/24 14:00 02/28/24 16:00 Temperature 98.4 F Pulse Rate 109 H 109 H 115 H Pulse Rate [Bilateral Radial] Respiratory Rate 21 H 14 Blood Pressure 130/90 110/91 H Pulse Oximetry 91 95 Oxygen Delivery 02/28/24 16:00 02/28/24 16:00 02/28/24 17:36 Temperature 97.7 F Pulse Rate 115 H 124 H Pulse Rate [Bilateral Radial] 109 H Respiratory Rate 18 Blood Pressure 110/91 H 140/96 H Pulse Oximetry 97 Oxygen Delivery 02/28/24 20:13 02/28/24 20:00 02/28/24 20:00 Temperature 97.7 F Pulse Rate 82 118 H Pulse Rate [Bilateral Radial] Respiratory Rate 18 Blood Pressure 125/50 L Pulse Oximetry 91 Oxygen Delivery Room Air 02/28/24 20:00 02/29/24 00:00 02/29/24 00:00 Temperature 97.4 F L Pulse Rate 122 H 112 H 112 H Pulse Rate [Bilateral Radial] Respiratory Rate 18 Blood Pressure 118/74 Pulse Oximetry 97 Oxygen Delivery 02/29/24 04:00 02/29/24 04:00 02/29/24 08:46 Temperature 97.1 F L Pulse Rate 105 H 101 H 114 H Pulse Rate [Bilateral Radial] Respiratory Rate 20 Blood Pressure 110/68 Pulse Oximetry 95 Oxygen Delivery 02/29/24 08:00 Temperature Pulse Rate Pulse Rate [Bilateral Radial] 114 H Respiratory Rate Blood Pressure Pulse Oximetry Oxygen Delivery Intake/Output Intake/Output: Intake & Output 02/26/24 02/27/24 02/28/24 02/29/24 23:59 23:59 23:59 23:59 Intake Total 2229.0 1481.5 1090 Output Total 2600 1600 350 Balance -371.0 -118.5 740 Meds/Results Medications: Active Medications Generic Name Dose Route Start Last Admin Trade Name Freq PRN Reason Stop Dose Admin Acetaminophen 650 mg 02/25/24 16:38 02/28/24 00:04 Acetaminophen 325 Mg Tablet PO 650 mg Q6H PRN Administration Mild Pain (1-3) or Fever Aspirin 81 mg 02/28/24 14:45 02/29/24 08:46 Aspirin 81 Mg Enteric Tablet PO 81 mg QAM PHOEBE Administration Atorvastatin Calcium 40 mg 02/28/24 14:45 02/29/24 08:46 Atorvastatin 40 Mg Tablet PO 40 mg DAILY PHOEBE Administration Calcium Carbonate 200 mg 02/26/24 13:19 02/27/24 22:37 Calcium Carbonate (Tums) 500 Mg (200 Mg Elemental) PO 200 mg Q6H PRN Administration Indigestion Carvedilol 3.125 mg 02/27/24 21:00 02/29/24 08:46 Carvedilol 3.125 Mg
--- NOTE | 2024-02-29 15:00 | PM.PNCARD ---
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 and cannot escalate more since patient has low cardiac output symptoms Start digoxin 0.125 mg daily Consider right and left heart catheterization with the patient is not improving clinically Patient counseled to stop alcohol drinking completely and stop smoking Add Lasix 40 mg p.o. daily Continue spironolactone 25 mg daily Subjective Date/time seen: 02/29/24 15:00 Interval history: No acute events Continued to have shortness of breath his mother Review of Systems Review of Systems: All systems reviewed & are unremarkable except as noted in HPI and below Exam Const: General: comfortable and no acute distress Other: Able to lie flat HENMT: Face/Nose/Sinus: Normal nares present and no epistaxis Mouth: Yes moist mucous membranes Neck: Neck: supple and no JVD Carotids: no bruits Resp: Auscultation: clear to auscultation bilaterally and lung sounds not diminished Other: No chest wall tenderness Cardio: Rate: regular rate Rhythm: regular rhythm Heart sounds: no gallops, no murmurs and no rubs Extrem: General: no edema Other: Normal capillary refills Intact distal pulses. Objective Data Vital Signs Vital Signs: Vital Signs - 24 hr 02/28/24 16:00 02/28/24 16:00 02/28/24 16:00 Temperature 36.9 C Pulse Rate 115 H 115 H Pulse Rate [Bilateral Radial] 109 H Respiratory Rate 14 Blood Pressure 110/91 H 110/91 H Pulse Oximetry 95 Oxygen Delivery 02/28/24 17:36 02/28/24 20:13 02/28/24 20:00 Temperature 36.5 C Pulse Rate 124 H 82 Pulse Rate [Bilateral Radial] Respiratory Rate 18 Blood Pressure 140/96 H Pulse Oximetry 97 Oxygen Delivery Room Air 02/28/24 20:00 02/28/24 20:00 02/29/24 00:00 Temperature 36.5 C Pulse Rate 118 H 122 H 112 H Pulse Rate [Bilateral Radial] Respiratory Rate 18 Blood Pressure 125/50 L Pulse Oximetry 91 Oxygen Delivery 02/29/24 00:00 02/29/24 04:00 02/29/24 04:00 Temperature 36.3 C L 36.2 C L Pulse Rate 112 H 105 H 101 H Pulse Rate [Bilateral Radial] Respiratory Rate 18 20 Blood Pressure 118/74 110/68 Pulse Oximetry 97 95 Oxygen Delivery 02/29/24 08:46 02/29/24 08:00 02/29/24 08:00 Temperature 36.1 C L Pulse Rate 114 H 90 Pulse Rate [Bilateral Radial] 114 H Respiratory Rate 18 Blood Pressure 116/78 Pulse Oximetry 97 Oxygen Delivery 02/29/24 08:00 02/29/24 08:45 02/29/24 12:00 Temperature Pulse Rate 98 Pulse Rate [Bilateral Radial] 118 H Respiratory Rate Blood Pressure Pulse Oximetry Oxygen Delivery Room Air Intake/Output Intake/Output: Intake & Output 02/26/24 02/27/24 02/28/24 02/29/24 23:59 23:59 23:59 23:59 Intake Total 2229.0 1481.5 1090 600 Output Total 2600 1600 350 Balance -371.0 -118.5 740 600 Meds/Results Medications: Active Medications Generic Name Dose Route Start Last Admin Trade Name Freq PRN Reason Stop Dose Admin Acetaminophen 650 mg 02/25/24 16:38 02/28/24 00:04 Acetaminophen 325 Mg Tablet PO 650 mg Q6H PRN Administration Mild Pain (1-3) or Fever Aspirin 81 mg 02/28/24 14:45 02/29/24 08:46 Aspirin 81 Mg Enteric Tablet PO 81 mg QAM PHOEBE Administration Atorvastatin Calcium 40 mg 02/28/24 14:45 02/29/24 08:46 Atorvastatin 40 Mg Tablet PO 40 mg DAILY PHOEBE Administration Calcium Carbonate 200 mg 02/26/24 13:19 02/27/24 22:37 Calcium Carbonate (Tums) 500 Mg (200 Mg Elemental)
[2024-02-29] MEDS: NICOTINE (*PBKC) 21 MG PATCH 1 PATCH TRANSDERM (18:06)
[2024-02-29] MEDS: PHENYLEPHRINE 1% NA SPR (*BKC) 15 ML BTL 1 SPRAY NASAL (21:00)
[2024-03-01] VITALS (15 sets, daily range): BP systolic 111–153; BP diastolic 55–104; PULSE 92–123; RESP 14–22; TEMP 35.3–36.4; O2SAT 97–100
--- NOTE | 2024-03-01 00:10 | ECG_ITS ---
Test Date: 2024-03-01 00:22:24 Measurements Intervals [place] Rate: 103 P: 23 [place]: 148 QRS: -4 QRSD: 84 T: 47 QT: 328 QTc: 431 Interpretive Statements SINUS TACHYCARDIA BASELINE ARTIFACT- I, II, III, AVR, AVL, AVF, V1, V3 BORDERLINE ECG Compared to ECG 02/27/2024 08:23:04 HEART RATE HAS INCREASED Electronically Signed On 03-01-2024 06:18:49 CDT by Aaron Aiken D.O.
[2024-03-01] MEDS: MORPHINE SULFATE (*CRX) 2 MG/ML INJ 1 MG IV PUSH (00:21)
[2024-03-01] MEDS: LORazepam INJ (*CRX) 2 MG/ML VIAL 1 MG IV PUSH (00:33)
[2024-03-01] MEDS: HYDROmorphone HCL INJ (*CRX) 1 MG/ML SYR IV PUSH (00:33)
[2024-03-01] MEDS: LEVALBUTEROL NEB 1.25 MG/3 ML INHALATION (00:41)
[2024-03-01 00:47] LABS: Magnesium 2.1 mg/dL (1.6-2.3)
[2024-03-01] MEDS: BELLADONNA ALK/PHENOB ELIX 10 ML, MAG HYDROX/ALUMINUM HYD/SIMETH 30 ML, LIDOCAINE HCL 2... PO (00:52)
[2024-03-01 01:04] LABS: Troponin I 0.022 ng/mL (0.000-0.034)
[2024-03-01 04:04] LABS: Troponin I 0.024 ng/mL (0.000-0.034)
[2024-03-01 07:10] LABS: T3 Free 4.8
[2024-03-01] MEDS: ATORVASTATIN 40 MG TABLET PO (08:29)
[2024-03-01] MEDS: ASPIRIN 81 MG ENTERIC TABLET PO (08:29)
[2024-03-01] MEDS: SACUBITRIL/VALSARTAN 24-26 MG TABLET 1 TAB PO ×2 (08:29→20:29)
[2024-03-01] MEDS: FOLIC ACID 1 MG TABLET PO (08:29)
[2024-03-01] MEDS: DIGOXIN TAB 125 MCG TABLET PO (08:30)
[2024-03-01] MEDS: THIAMINE HCL 100 MG TABLET PO (08:30)
[2024-03-01] MEDS: carvediloL 3.125 MG TABLET PO (08:30)
[2024-03-01] MEDS: ENOXAPARIN 40 MG/0.4 ML SYRINGE SUB-Q (08:34)
--- NOTE | 2024-03-01 09:53 | PM.PNCARD ---
Progress Note: A&P Assessment and Plan (1) Cardiomyopathy: Code(s): I42.9 - Cardiomyopathy, unspecified Status: Acute Assessment and Plan: EF 30-35%. This is a new diagnosis. He is not in decompensated heart failure. 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 - he is not in decompensated heart failure Can add SGLT2i to his regimen as well Discontinue digoxin He will need an ischemic evaluation at some point, can be done as an outpatient From a cardiac standpoint he is stable. Will arrange for close outpatient follow up. Cardiology will sign off please call with questions (2) Elevated blood pressure reading: Code(s): R03.0 - Elevated blood-pressure reading, without diagnosis of hypertension Status: Acute Assessment and Plan: Improved, generally at/near goal. (3) Alcohol abuse: Code(s): F10.10 - Alcohol abuse, uncomplicated Status: Acute Assessment and Plan: Withdrawal management per hospitalist. Educated him about the importance of abstinence from ETOH in regard to his cardiomyopathy (4) Altered mental status: Code(s): R41.82 - Altered mental status, unspecified Status: Acute Assessment and Plan: Improved Subjective Date/time seen: 03/01/24 09:53 Interval history: Cardiology follow up for cardiomyopathy He is feeling well today. Complains of muscle pain in his right pectoral muscle. Has no chest pain, shortness of breath, or palpitations. Tele shows sinus tachycardia. Exam Const: General: comfortable, no acute distress, alert and awake Orientation/consciousness: patient oriented x3 Other: Able to lie flat HENMT: Head: normal to inspection Face/Nose/Sinus: Normal nares present and no epistaxis Mouth: Yes moist mucous membranes Eyes: General: appearance normal, both eyes and all related structures Pupils: Equal, round and reactive pupils present Neck: Neck: normal visual inspection, supple and no JVD Carotids: normal carotid upstroke and no bruits Resp: Effort & Inspection: normal respiratory effort Auscultation: clear to auscultation bilaterally and lung sounds not diminished Other: right sided chest wall tenderness Cardio: Rate: regular rate Rhythm: regular rhythm Heart sounds: S1 normal heart sound present, S2 normal heart sound present, no gallops, no murmurs and no rubs GI: Auscultation: normal bowel sounds Skin: General skin exam: normal color Neuro: General: patient oriented x3 Cranial nerves: Yes Equal, round and reactive pupils present Extrem: General: normal to inspection and no edema Other: Normal capillary refills Intact distal pulses. Psych: Appearance: grossly normal Mental Status: mental status grossly normal Objective Data Vital Signs Vital Signs: Vital Signs - 24 hr 02/29/24 12:00 02/29/24 12:00 02/29/24 16:00 Temperature 36.7 C 36.7 C Pulse Rate 92 92 Pulse Rate [Bilateral Radial] 118 H Respiratory Rate 16 18 Blood Pressure 140/68 110/78 Pulse Oximetry 88 L 96 Oxygen Delivery Fraction of Inspired Oxygen 02/29/24 16:00 02/29/24 12:02 02/29/24 16:02 Temperature Pulse Rate 115 H 119 H Pulse Rate [Bilateral Radial] Respiratory Rate Blood Pressure Pulse Oximetry 95 Oxygen Delivery Fraction of Inspired Oxygen 02/29/24 16:00 02/29/24 21:00 02/29/24 14:07 Temperature 36.7 C Pulse Rate 115 H 110 H Pulse Rate [Bilateral Radial] 119 H Respiratory Rate 16 Blood Pressure 130/76 Pulse Oximetry 97 Oxygen Delivery Fraction of Inspired Oxygen 02/29/24 20:00 02/29/24 21:00 02/29/24 21:04 Temperature 36.7 C 36.7 C 36.7 C Pulse Rate 110 H 121 H 125 H Pulse Rate [Bilateral Radial] Respiratory Rate 16 16 18 Blood Pressure 130/76 119/
[2024-03-01 09:54] LABS: Methylmalonic Acid 101 nmol/L (55-335)
--- NOTE | 2024-03-01 14:11 | PM.IMPN ---
Progress Note: A&P Assessment and Plan (1) Sinus tachycardia: Code(s): R00.0 - Tachycardia, unspecified Status: Acute (2) Cardiomyopathy: Code(s): I42.9 - Cardiomyopathy, unspecified Status: Acute (3) Tobacco dependence: Code(s): F17.200 - Nicotine dependence, unspecified, uncomplicated Status: Acute (4) Alcohol abuse: Code(s): F10.10 - Alcohol abuse, uncomplicated Status: Acute Plan EKG overnight during the chest pain episode demonstrates sinus tachycardia. Troponin negative. Patient now complaining of shortness of breath at rest. CTA chest PE protocol. Also educated him on possibility of postural tachycardia syndrome. His heart rate going up 20 from supine to standing. Will discontinue Coreg and start metoprolol 25 mg p.o. b.i.d.. Patient reports his urine is very dark and believes he is dehydrated. Will give a slow infusion of 50 cc normal saline per hour for 500 cc total only. Continue telemetry Subjective Date/time seen: 03/01/24 14:11 Interval history: Inform patient of suspected postural tachycardia syndrome. Informed him of chronicity of this and lifestyle management indicated. Patient became tearful, reported right-sided chest pain last night which required extensive workup. He complains of pain currently. Also complains of shortness of breath now while he is sitting. Review of Systems Review of Systems: All systems reviewed & are unremarkable except as noted in HPI and below (Subjective) Exam Const: General: comfortable and no acute distress Eyes: Pupils: Equal, round and reactive pupils present Neck: Neck: supple Resp: Effort & Inspection: normal respiratory effort Auscultation: clear to auscultation bilaterally Cardio: Rate: tachycardic Rhythm: regular rhythm GI: GI Palp: Yes Soft to palpation and No Tenderness to palpation present (GI) Extrem: General: no edema Objective Data Vital Signs Vital Signs: Vital Signs - 24 hr 02/29/24 16:00 02/29/24 16:00 02/29/24 16:02 Temperature 98.0 F Pulse Rate 92 119 H Pulse Rate [Bilateral Radial] Respiratory Rate 18 Blood Pressure 110/78 Pulse Oximetry 96 95 Oxygen Delivery Fraction of Inspired Oxygen 02/29/24 16:00 02/29/24 21:00 02/29/24 20:00 Temperature 98.0 F Pulse Rate 115 H 110 H Pulse Rate [Bilateral Radial] 119 H Respiratory Rate 16 Blood Pressure 130/76 Pulse Oximetry 97 Oxygen Delivery Fraction of Inspired Oxygen 02/29/24 21:00 02/29/24 21:04 02/29/24 20:00 Temperature 98.0 F 98.0 F Pulse Rate 121 H 125 H 116 H Pulse Rate [Bilateral Radial] Respiratory Rate 16 18 Blood Pressure 119/81 120/75 Pulse Oximetry 97 98 Oxygen Delivery Fraction of Inspired Oxygen 02/29/24 20:00 02/29/24 20:00 02/29/24 23:18 Temperature 97.8 F Pulse Rate 125 H 106 H Pulse Rate [Bilateral Radial] 116 H Respiratory Rate 18 16 Blood Pressure 120/75 143/85 H Pulse Oximetry 98 97 Oxygen Delivery Room Air Fraction of Inspired Oxygen 21 03/01/24 00:25 03/01/24 00:42 03/01/24 00:00 Temperature 97.5 F L Pulse Rate 109 H 123 H 100 Pulse Rate [Bilateral Radial] Respiratory Rate 22 H 20 Blood Pressure 153/104 H Pulse Oximetry 100 Oxygen Delivery Fraction of Inspired Oxygen 03/01/24 00:00 03/01/24 03:42 03/01/24 04:00 Temperature 97.5 F L Pulse Rate 99 98 Pulse Rate [Bilateral Radial] 116 H Respiratory Rate 18 Blood Pressure 153/104 H 111/55 L Pulse Oximetry 98 Oxygen Delivery Fraction of Inspired Oxygen 03/01/24 04:00 03/01/24 08:30 03/01/24 08:30 Temperature Pulse Rate 115 H 115 H Pulse Rate [Bilateral Radial] 98 Respiratory Rate Blood Pressure 111/55 L Pulse Oximetry Oxygen Delivery Fraction of Inspired Oxygen 03/01/24 08:00 03/01/24 08:00 03/01/24 08:00 Temperature 97.1 F L Pulse Rate 102 H 92 Pulse Rate [Bilateral Radial] 110 H Resp
[2024-03-01] MEDS: CEFEPIME 2 GM/NS 50 ML 2 GM/50 ML BAG IVPB ×2 (17:06→22:57)
[2024-03-01] MEDS: SODIUM CHLORIDE 0.9% IV 500 ML 50 ML IV CONT (17:06)
[2024-03-01 18:30] LABS: MRSA (PCR) NOT DETECTED (NOT DETECTE)
[2024-03-01] MEDS: METOPROLOL TARTRATE 25 MG TABLET PO (20:29)
[2024-03-01] MEDS: NICOTINE (*PBKC) 21 MG PATCH 1 PATCH TRANSDERM (20:35)
[2024-03-01] MEDS: PHENYLEPHRINE 1% NA SPR (*BKC) 15 ML BTL 1 SPRAY NASAL (20:38)
[2024-03-02] VITALS (7 sets, daily range): BP systolic 103–146; BP diastolic 64–92; PULSE 57–111; RESP 16–18; TEMP 36–36.6; O2SAT 96–99
[2024-03-02] MEDS: CEFEPIME 2 GM/NS 50 ML 2 GM/50 ML BAG IVPB ×2 (06:05→13:27)
[2024-03-02 06:25] LABS: Basophils Percent Auto 0.4 % (0.2-1.2); Eosinophils Absolute Auto 0.1 K/mm3 (0-0.3); Eosinophils Percent Auto 1.9 % (0-4.4); Hematocrit 44.2 % (42.0-52.0); Hemoglobin 14.9 g/dL (14.0-18.0); Immature Granulocyte Absolute 0.05 K/mm3 (0.00-0.031); Immature Granulocyte Percent A 0.7 % (0-0.5); Mean Corpuscular HGB Conc 33.7 g/dl (32-36); Mean Corpuscular Hemoglobin 33.3 pg (26-34); Mean Corpuscular Volume 98.7 fl (80-100); Mean Platelet Volume 10.8 fl (7.4-10.4); Monocytes Absolute Auto 1.3 K/mm3 (0.1-0.6); Monocytes Percent Auto 18.2 % (2.6-8.5); Neutrophils Absolute Auto 4.3 K/mm3 (1.3-6.7); Neutrophils Percent Auto 62.8 % (45.5-73.1); Platelet Count Result 202 k/mm3 (150-375); Red Blood Count 4.48 M/mm3 (4.6-6.20); Red Cell Distribution Width 13.2 % (11.5-14.5); White Blood Count 6.9 K/mm3 (4.5-10.0)
[2024-03-02 06:34] LABS: Anion Gap 11 mmol/L (4-12); Blood Urea Nitrogen 12 mg/dL (9-20); Calcium 8.8 mg/dL (8.4-10.2); Carbon Dioxide 24 mmol/L (22-30); Chloride 103 mmol/L (98-107); Estimated CRCL calculation 110 ml/min; Estimated Glomerular Filt Rate > 60; Glucose 111 mg/dL (65-110); Magnesium 2.2 mg/dL (1.6-2.3); Potassium 4.3 mmol/L (3.4-5.0); Sodium 138 mmol/L (137-145)
[2024-03-02] MEDS: FOLIC ACID 1 MG TABLET PO (08:27)
[2024-03-02] MEDS: ASPIRIN 81 MG ENTERIC TABLET PO (08:27)
[2024-03-02] MEDS: ATORVASTATIN 40 MG TABLET PO (08:27)
[2024-03-02] MEDS: SPIRONOLACTONE 25 MG TABLET PO (08:28)
[2024-03-02] MEDS: SACUBITRIL/VALSARTAN 24-26 MG TABLET 1 TAB PO (08:28)
[2024-03-02] MEDS: ENOXAPARIN 40 MG/0.4 ML SYRINGE SUB-Q (08:28)
[2024-03-02] MEDS: THIAMINE HCL 100 MG TABLET PO (08:28)
[2024-03-02] MEDS: METOPROLOL TARTRATE 25 MG TABLET PO (08:29)
--- NOTE | 2024-03-02 11:03 | PM.DS ---
DS: Admitting Diagnosis Discharge Date March 02, 2024 Admitting Diagnosis Altered mental status DS: Discharge Diagnosis Discharge Diagnosis (1) Sinus tachycardia: Code(s): R00.0 - Tachycardia, unspecified Status: Acute (2) Pneumonia: Code(s): J18.9 - Pneumonia, unspecified organism Status: Acute (3) Cardiomyopathy: Code(s): I42.9 - Cardiomyopathy, unspecified Status: Acute (4) Tobacco dependence: Code(s): F17.200 - Nicotine dependence, unspecified, uncomplicated Status: Acute (5) Alcohol abuse: Code(s): F10.10 - Alcohol abuse, uncomplicated Status: Acute DS: Summary Hospital Course Hospital Course: H&P via Eufemia Carter PA-C This is a 53-year-old male smoker with history of alcohol abuse who presented to the emergency department via private vehicle from home accompanied by his for evaluation of altered mental status. The patient is able to provide some history however his provides the majority of the following given his confusion. He drinks a little over a pint of vodka each day and has for many years. He consumes his alcohol in the evenings after work and before he goes to bed. Last night he drank alcohol as per usual and seemed to be in his usual state of health. At a by 05:30 the patient's heard him making noise in the bedroom and when she entered the room she found that he had knocked over many items on his bedside table and he was sitting at the edge of the bed in a confused state. She noticed tremoring in his arms, more so on the right. He was attempting to drink nasal spray which he thought was water and he reported swelling burnt toast when there was no toast made. In the emergency department his noticed that he had frequent episodes where he seemed to go unresponsive with fine tremors of the arms and snoring respirations however his eyes were reportedly wide open. He did not appear to have suffered any falls or injury and there was no incontinence noted. He has never exhibited similar symptoms nor has he ever had symptoms of alcohol withdrawal or seizures. They were in [place] recently and he got many mosquito bites but has not exhibited any illness or fevers. He has not had any recent change in medication and he denies drug use. In the ED: He has been afebrile since arrival. Blood pressures have been as high as 174/114 (no known history of hypertension). He has been in sinus tachycardia with rates in the low 100s. Labs are significant for a WBC count of 11.7, carbon dioxide 21, anion gap 15, glucose 150, magnesium 1.5, ALT 59, CRP 0.8, procalcitonin 0.1, TSH 2.390, ammonia less than 9. Ethyl alcohol level was less than 10. Urine drug screen was negative. Urine was positive for 1+ protein and trace ketones. Head CT showed no acute intracranial abnormality but did note a small chronic left cerebellar infarction which is unknown to the patient and his . Chest x-ray showed no acute cardiopulmonary disease. He was given IV lorazepam and liter normal saline bolus and is being admitted in this setting for close monitoring and further evaluation. ----- The patient was placed in the ICU on Precedex infusion. He fairly quickly came back to his normal mental status which is A&O x4. He was on Librium 25 mg p.o. q.6 hours, folic acid and thiamine. Subsequently transferred out of the ICU. MRI brain demonstrates no acute abnormalities, there were small infarcts in the bilateral cerebral hemispheres and a small amount of scattered mesenteric white matter T2 hyperintensity likely a sequela of chronic small-vessel ischemic disease. Bilateral carotid Dopplers demonstrated the following. The right common carotid artery (CCA) peak systolic velocity (PSV) is 66 cm/s. The right internal carotid artery (ICA) PSV is 54 cm/s. The right ICA end-diastolic velocity (EDV) is 23 cm/s. The right ICA/CCA PSV ratio is 0.8. Grayscale and color Doppler images yield an estimate of <50
[2024-03-02 11:30] LABS: Hemoglobin A1C 5.7 % (<5.7)
== END 2024-03-02 15:00 | disposition home or self-care (01) | DRG 775 ==
LOC: ANHED 10:40 → ANH3MEDSUR 11:21 → ANHIMU 22:56 → ANHICU 23:16 → ANH3MEDSUR 02-28 17:18
PROVIDERS: Internal Medicine; Physician Assistant; Psychiatry & Neurology Neurology; Admitting Provider Family Medicine; Emergency Provider Emergency Medicine; PCP Family Medicine; Visit Provider General Practice
DX: F10.231 Alcohol dependence with withdrawal delirium (principal); R03.0 Elevated blood-pressure reading, without diagnosis of hypertension; J18.9 Pneumonia, unspecified organism; G25.2 Other specified forms of tremor; E83.42 Hypomagnesemia; I67.4 Hypertensive encephalopathy; G40.909 Epilepsy, unspecified, not intractable, without status epilepticus; F17.210 Nicotine dependence, cigarettes, uncomplicated; I42.6 Alcoholic cardiomyopathy; I25.5 Ischemic cardiomyopathy; Y90.0 Blood alcohol level of less than 20 mg/100 ml; R00.0 Tachycardia, unspecified
CPT/HCPCS: 36415; 70450; 70553; 71045; 71275; 80048; 80053; 80061; 80307; 81001; 82140; 82306; 82607; 82746; 82948; 83036; 83605; 83690; 83735; 83921; 84100; 84145; 84436; 84443; 84480; 84484; 85025; 85027; 85610; 85730; 86140; 87040; 87637; 87641; 93005; 93306; 93880; 94640; 95816; 96361; 96374; 99285; A9270; A9577; G0378; J0692; J1170; J1650; J2060; J2270; J3411; J3475; J7030; J7040; J7042; J7120; Q9967

== ENCOUNTER 2025-06-14 19:42 | Emergency (ER) | payer OTHER, SELFPAY ==
--- NOTE | ~2025-06-14 | CT_ITS ---
CTA chest PE protocol HISTORY:palpitations; dimer elev; SOB; subjective LLE . COMPARISON: None. TECHNIQUE: Following the noncontrasted vault custodian, axial images of the thorax were obtained following infusion of 100 cc of Isovue 370. Post-processing on an independent workstation was performed to reconstruct MIP images for evaluation of the thoracic vasculature. FINDINGS: There is no pulmonary embolism, aortic dissection, thoracic aneurysm or pericardial fluid. The lung parenchyma is clear. No pleural effusion or pneumothorax is noted. There is no axillary, mediastinal or hilar adenopathy. Limited evaluation of the upper abdomen demonstrates no gross abnormalities. Review of bone windows demonstrates no osteoblastic or lytic lesions. IMPRESSION: There is no pulmonary embolism, aortic dissection, pericardial fluid or thoracic aneurysm. No acute lung findings. All CT scans at this facility are performed using low dose modulation techniques as appropriate to perform exam including the following: automated exposure control; use of iterative reconstruction technique; adjustment of the mA and/or kV according to patient size (this includes techniques or standardized protocols for targeted exams where dose is matched to indication/reason for exam). Reviewed, dictated and finalized at location S. MBLY MACHINE OPERATOR IMPRESSION: There is no pulmonary embolism, aortic dissection, pericardial fluid or thoraci c aneurysm. No acute lung findings. All CT scans at this facility are performed using low dose modulation techniqu es as appropriate to perform exam including the following: automated exposure c ontrol; use of iterative reconstruction technique; adjustment of the mA and/or kV according to patient size (this includes techniques or standardized protocol s for targeted exams where dose is matched to indication/reason for exam).
--- NOTE | ~2025-06-14 | XR_ITS ---
XR chest 2V HOSTORY: palpitations COMPARISON:[03/01/2024 FINDINGS: Frontal and lateral views of the chest were obtained. The lungs are clear. The heart size is normal in size. Pulmonary vasculature is unremarkable. Osseous structures are intact. IMPRESSION: No acute lung findings.] [ ] Reviewed, dictated and finalized at location S. TRANSFER OPERATOR
--- NOTE | 2025-06-14 19:51 | ECG_ITS ---
Test Date: 2025-06-14 19:58:13 Measurements Intervals [place] Rate: 104 P: 26 [place]: 146 QRS: 16 QRSD: 97 T: 54 QT: 327 QTc: 431 Interpretive Statements SINUS TACHYCARDIA POSSIBLE RIGHT VENTRICULAR CONDUCTION DELAY [RSR (QR) IN V1/V2] ABNORMAL RHYTHM ECG Compared to ECG 03/01/2024 00:22:24 NO SIGNIFICANT CHANGES Electronically Signed On 06-14-2025 21:14:24 [employer] by Rufino Munoz M.D.
--- NOTE | 2025-06-14 20:02 | ECG_ITS ---
Test Date: 2025-06-14 20:02:08 Measurements Intervals [place] Rate: 106 P: 19 [place]: 137 QRS: 11 QRSD: 94 T: 52 QT: 324 QTc: 431 Interpretive Statements SINUS TACHYCARDIA POSSIBLE RIGHT VENTRICULAR CONDUCTION DELAY [RSR (QR) IN V1/V2] ABNORMAL RHYTHM ECG Compared to ECG 06/14/2025 19:58:13 No significant changes Electronically Signed On 06-15-2025 13:15:01 [employer] by Rufino Munoz M.D.
[2025-06-14 20:05] LABS: Hematocrit 50.7 % (42.0-52.0); Hemoglobin 17.0 g/dL (14.0-18.0); Immature Granulocyte Percent A 0.6 % (0-0.5); Lymphocytes Absolute Auto 0.83 K/mm3 (0.9-3.2); Mean Corpuscular HGB Conc 33.5 g/dl (32-36); Mean Corpuscular Hemoglobin 32.4 pg (26-34); Mean Corpuscular Volume 96.8 fl (80-100); Nucleated Red Blood Cells Absolute Auto 0.000 K/mm3 (0.0-0.012); Nucleated Red Blood Cells Perc 0.0 % (0.0-0.2); Platelet Count Result 230 k/mm3 (150-375); Red Blood Count 5.24 M/mm3 (4.6-6.20); White Blood Count 8.4 K/mm3 (4.5-10.0)
[2025-06-14 20:06] VITALS: BP 142/98; PULSE 106; RESP 14; O2SAT 97
[2025-06-14 20:17] LABS: INR 1.0; Prothrombin Time 12.8 Seconds (11.1-14.7)
[2025-06-14 20:18] LABS: Partial Thromboplastin Time 28.1 Seconds (22.3-36.8)
[2025-06-14 20:33] LABS: Alanine Aminotransferase 57 U/L (6-50); Albumin Level 4.5 g/dL (3.5-5.1); Alkaline Phosphatase 80 U/L (38-126); Anion Gap 9 mmol/L (4-12); Aspartate Amino Transferase 53 U/L (17-59); Bilirubin,Total 0.5 mg/dL (0.2-1.3); Blood Urea Nitrogen 13 mg/dL (9-20); Calcium 9.2 mg/dL (8.4-10.2); Carbon Dioxide 24 mmol/L (22-30); Chloride 105 mmol/L (98-107); Estimated CRCL calculation 98 ml/min; Estimated Glomerular Filt Rate > 60; Glucose 141 mg/dL (65-110); Lipase 90 U/L (23-300); Potassium 3.9 mmol/L (3.4-5.0); Sodium 138 mmol/L (137-145); Total Protein 7.9 g/dL (6.3-8.2)
[2025-06-14 20:40] LABS: Troponin I < 0.012 ng/mL (0.000-0.034)
--- NOTE | 2025-06-14 20:42 | ED_ITS ---
HPI - Arrhythmia/Palpitations General Chief Complaint: Arrhythmia/Palpitations Stated Complaint: palpations Time Seen by Provider: 06/14/25 20:24 Source: patient and family Mode of arrival: ambulatory Limitations: no limitations History of Present Illness HPI narrative: Patient presents. At he reports feeling like his missing beats other he feels fluttering. He has noticed that his blood pressure has been elevated at home. He reported in triage that his heart doesn't feel right.He felt short of breath when his heart was having sensation being fast cost he needs to catch his breath he also notes that he notably breathing at night. Has had head pressure since February and recently had nasal congestion seem before that. He also thought it might be due to his teeth but he these fixed. Did recently have an respiratory infection weeks ago that seemed to linger for approximately 3 weeks. He is prescribed metoprolol which he is supposed to take regularly endorses does however he did take it this morning. He has had slight cough and chills but denies fever, sore nausea. He wore an event monitor as a kid; not as an adult. He occasionally drinks a caffeinated soad, maybe 1/day. Denies recreational drug use. He reports occasionally experiencing left lower extremity edema which he has attributed to arthritis. His primary care physician is Dr Encinas and sees a instructional materials director as he has a diagnosis of cardiomyopathy. He recently had work up for carotid stenosis. Denies hemoptysis. Related Data Allergies Allergy/AdvReac Type Severity Reaction Status Date / Time No Known Allergies Allergy Unknown Unverified 10/26/24 09:30 [facility] Past Medical History Medical History Cardiomyopathy Hypomagnesemia Prediabetes Alcohol abuse with other alcohol-induced disorder Multiple lacunar infarcts Atherosclerosis of [place] coronary artery of [place] heart without angina pectoris Tobacco dependence Diverticulitis Alcohol abuse Surgical History Surgical History History of nasal septoplasty Status post urethral surgery As a child. Family History Family History Other Family history non-contributory Social History Social History (Updated 06/15/25 @ 17:46 by Kasia Griffiths MD) Social History: Surrogate medical decision maker: Antonette Avelar, spouse. Code status: Full code. Smoking packs per day: 1 Smoking cigarettes per day: 20.0 Years smoked: 45 Smoking pack-years: 45.00 Tobacco type: cigarettes Additional smoking assessment comments: Smoked since grade school. Alcohol intake: current Alcohol use details: At least 1 pint of vodka a day. Substance use: never Substance use type: does not use Last use: pt drinks 1l vodka daily Do You Feel Safe in your Home?: Yes Lack of Transportation: No Lack of Food: Sometimes True Current Housing: I Have Housing Concerned About Future Housing: YES Difficulty Paying Gas/Electric Bills: No Difficulty Paying for Meds: YES Currently Unemployed: YES Education: Don't Know Difficulty w/ Childcare or Family Care: No Living arrangements: with family Additional living arrangements comments: Lives with spouse in [place]. 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 Gender identity (if verbalized by the patient): Male Sexual Orientation (if Verbalized by the Patient): Straight or Heterosexual Spiritual care concerns: No Exam 2 Narrative: GENERAL: Well-appearing, well-nourished, and in no acute distress. HEAD: Normocephalic, atraumatic. EYES: Non injected, non icteric ENT: Nares clear, no rhinorrhea or epistaxis. Gross auditory acuity intact. NECK: Supple. No meningismus. CHEST: Speaking in full sentences. No respiratory distress. HEART: Tachycardic rate and rhythm . ABDOMEN: Soft, nondistended. Not peritoneal EXTREMITIES: Normal range of motion. No lower extremity edema at the time of exam. SKIN: Warm, dry, no rash. NEURO: No focal deficits. Alert and oriented. Answering questions. Following commands. Normal speech without aphasia or dysarthria. No abnormal movements appreciated. PSYCH: Normal mood and affect. Course Vital Signs Vital signs: Vital Signs Pulse Rate 106 H 06/14/25 20:06 Respiratory Rate 14 06/14/25 20:06 Blood Pressure 142/98 H 06/14/25 20:06 Pulse Oximetry 97 06/14/25 20:06 Oxygen Delivery Room Air 06/14/25 20:06 Temperature 98.0 F 06/15/25 00:12 Pulse Rate 88 06/15/25 00:12 Respiratory Rate 18 06/15/25 00:12 Blood Pressure 141/98 H 06/15/25 00:12 Pulse Oximetry 100 06/15/25 00:12 Oxygen Delivery Room Air 06/14/25 20:06 MDM - Arrhythmia/Palpitations MDM Narrative Medical decision making narrative: Patient presents with report of palpiations. Notes that at times it feels like his is missing beats and at other he notes a fluttering. He is prescribed metoprolol however he reports not taking regularly although did take it this morning. Follows with a instructional materials director his cardiomyopathy diagnosis. In the emergency department he is afebrile with vital signs notable tachycardia and hypertension. YEARS Algorithm : No Clinical signs of DVT: No but patient reports subjective unilateral edema before Hemoptysis: No PE is most likely diagnosis: No D-dimer >1000ng/mL: No Given the ambiguity, wiill proceed with CTA imaging. Intermittent ALT elevation had previously been appreciated. History of longstanding alcohol consumption per review of EMR. Troponin and viral swab normal. No marked electrolyte abnormalities. BNP without evidence of acute heart failure. TSH normal. Repeat troponin normal. Patient otherwise has not demonstrated any marked arrhythmias during ED cardiac monitoring. He would likely benefit from following up with his instructional materials director and potentially wearing a Holter /event monitor. It is currently overnight so unable to arrange with cardiology directly from the ED. Otherwise stable and has a instructional materials director. He also patient in his bed mention that at he stops breathing at night. neck circumference not measured although it did not appear markedly enlarged however he is be default 3 points on STOP-BANG score of ALINE based on report of +1 stop breathing, +1 male, +1 age. Differential Diagnosis Differential diagnosis: Likely palpitations, anxiety, sinus tachycardia, artial fibrillation, artial flutter, ventricular premature beats, supraventricular tachycardia, ventricular tachycardia, WPW and other (valvulopathy; sleep apnea) Medical Records Attestation: I reviewed the patient's medical records. Medical records narrative: Echo February 2024: Summary 1. Complete two-dimensional, color flow and Doppler transthoracic echocardiogram is performed. 2. Left ventricular systolic function is severely globally reduced, estimated at 30-35%. 3. Left ventricular chamber dimension is moderately enlarged. 4. The left ventricular diastolic function is abnormal. 5. E/e' 10 is mildly elevated. 6. Global longitudinal strain is abnormal at -13.7%. 7. Left atrial chamber dimension is mildly enlarged. 8. There is mild aortic valve sclerosis. 9. There is mild mitral valve regurgitation. 10. No pulmonary hypertension, estimated pulmonary arterial systolic pressure is 31 mmHg. Lab Data Attestation: I reviewed the patient's lab results. 06/14/25 19:59 06/14/25 19:59 Labs: Lab Results 06/14/25 06/14/25 06/14/25 Range/Units 19:59 21:09 23:00 WBC 8.4 (4.5-10.0) K/mm3 RBC 5.24 (4.6-6.20) M/mm3 Hgb 17.0 (14.0-18.0) g/dL Hct 50.7 (42.0-52.0) % MCV 96.8 (80-100) fl MCH 32.4 (26-34) pg MCHC 33.5 (32-36) g/dl RDW 14.9 H (11.5-14.5) % Plt Count 230 (150-375) k/mm3 MPV 10.1 (7.4-10.4) fl Immature Gran % (Auto) 0.6 H (0-0.5) % Neut % (Auto) 79.9 H (45.5-73.1) % Lymph % (Auto) 9.9 L (18.3-44.2) % Cochran % (Auto) 8.0 (2.6-8.5) % Eos % (Auto) 1.0 (0-4.4) % Baso % (Auto) 0.6 (0.2-1.2) % Lymph # (Auto) 0.83 L (0.9-3.2) K/mm3 Cochran # (Auto) 0.7 H (0.1-0.6) K/mm3 Eos # (Auto) 0.1 (0-0.3) K/mm3 Baso # (Auto) 0.1 (0.0-0.1) K/mm3 Abs Immat Gran (auto) 0.05 H (0.00-0.031) K/mm3 Absolute Neuts (auto) 6.7 (1.3-6.7) K/mm3 Absolute Nucleated RBC 0.000 (0.0-0.012) K/mm3 Nucleated RBC % 0.0 (0.0-0.2) % PT 12.8 (11.1-14.7) Seconds INR 1.0 APTT 28.1 (22.3-36.8) Seconds D-Dimer 0.54 H (<0.48) ug/mL Sodium 138 (137-145) mmol/L Potassium 3.9 (3.4-5.0) mmol/L Chloride 105 (98-107) mmol/L Carbon Dioxide 24 (22-30) mmol/L Anion Gap 9 (4-12) mmol/L BUN 13 (9-20) mg/dL Creatinine 0.78 (0.7-1.3) mg/dL Estim Creat Clear Calc 98 ml/min Estimated GFR > 60 (59 - ) Glucose 141 H (65-110) mg/dL Calcium 9.2 (8.4-10.2) mg/dL Magnesium 2.0 (1.6-2.3) mg/dL Total Bilirubin 0.5 (0.2-1.3) mg/dL AST 53 (17-59) U/L ALT 57 H (6-50) U/L Alkaline Phosphatase 80 (38-126) U/L Troponin I < 0.012 < 0.012 (0.000-0.034) ng/mL NT-Pro-B Natriuret Pep 109 H (19.9-100) pg/mL Total Protein 7.9 (6.3-8.2) g/dL Albumin 4.5 (3.5-5.1) g/dL Lipase 90 (23-300) U/L TSH 1.390 (0.465-4.680) uIU/mL Influenza A (RT-PCR) Negative (Negative) Influenza B (RT-PCR) Negative (Negative) RSV (RT-PCR) Negative (Negative) SARS-CoV-2 RNA (RT-PCR) Negative (Negative) Imaging Data Radiologist's impression: Impressions Chest X-Ray 06/14/25 20:30 IMPRESSION: No acute lung findings.] [ ] Chest CTA 06/14/25 21:50 IMPRESSION: There is no pulmonary embolism, aortic dissection, pericardial fluid or thoracic aneurysm. No acute lung findings. All CT scans at this facility are performed using low dose modulation techniques as appropriate to perform exam including the following: automated exposure control; use of iterative reconstruction technique; adjustment of the mA and/or kV according to patient size (this includes techniques or standardized protocols for targeted exams where dose is matched to indication/reason for exam). ECG Data EKG #1: Attestation: I personally reviewed and interpreted this ECG as follows: ECG completion date: 06/14/25 ECG completion time: 19:58 Interpretation: Sinus tachycardia at a rate of 104 beats minute. SC interval 146. QRS 97. QT/QTC 327/431. Good R-wave progression across the precordial leads. T-wave inversion. Baseline artifact/wander in V2 and V5 limits full interpretation thus I did request that this be repeated. EKG #2: Attestation: I personally reviewed and interpreted this ECG as follows: ECG completion date: 06/14/25 ECG completion time: 20:02 Interpretation: Sinus tachycardia at a rate of 106 pack per minute. SC interval 137. QRS 94. QT/QTC 324/386. Good R-wave progression across the precordial leads. No T-wave inversion. Occasional premature complexes. Unclear why this EKG does not initially load/scan into EMR EKG #3: Attestation: I personally reviewed and interpreted this ECG as follows: ECG completion date: 06/14/25 ECG completion time: 22:46 Interpretation: Sinus tachycardia at a rate of 104 beats per minute. SC interval 138. QRS 96. QT/QTC 333/439. R-wave progression across the precordial leads. No T-wave inversion. Discharge Plan Discharge Clinical Impression: Palpitations, Shortness of breath Patient Disposition: Home Condition: Stable Instructions: Antibiotic Form, Heart Palpitations (DC), Shortness of Breath (ED) Additional Instructions: Your work up did not reveal a cause of your symptoms however given your history of cardiomyopathy I recommend you Follow up with your instructional materials director. If you do not have 1 the name of the doctors listed below. In addition, he would likely benefit from a sleep study. Follow-up with your primary care physician to help arrange this. Patient Language: Portuguese Prescriptions: No Action naltrexone 50 mg tablet 50 mg PO DAILY Qty: 100 0RF aspirin 81 mg tablet,delayed release (DR/EC) 81 mg PO QAM Qty: 100 1RF atorvastatin 40 mg tablet 40 mg PO DAILY Qty: 100 1RF folic acid 1 mg tablet 1 mg PO DAILY Qty: 100 1RF metoprolol tartrate 25 mg tablet 25 mg PO Q12HR Qty: 100 1RF Entresto 24-26 mg tablet 1 tablet PO Q12HR Qty: 100 1RF thiamine HCl (vitamin B1) [Vitamin B-1] 100 mg tablet 100 mg PO QAM Qty: 100 1RF lorazepam 2 mg tablet See Rx Instructions PO QHS PRN (Reason: alcohol withdrawal) Qty: 90 0RF Rx Instructions: 1 or 2 tablets at bedtime as needed sildenafil [Viagra] 100 mg tablet 100 mg PO DAILY PRN (Reason: sexual activity) Qty: 10 0RF Rx Instructions: administer 30 minutes to 4 hours before activity ciprofloxacin HCl 500 mg tablet 500 mg PO Q12H Qty: 20 0RF Follow-up/Referrals: Christa Man DO [Physician, Cardiology] Ross Encinas MD [Primary Care Provider, Family Practice] Stand Alone Forms: Work/School Release IP Time of Disposition: 23:35
[2025-06-14 21:49] LABS: Influenza A QL RT-PCR Negative (Negative); Influenza B QL RT-PCR Negative (Negative); RSV RNA, RT-PCR Negative (Negative); SARS-CoV-2 RNA PCR Negative (Negative)
[2025-06-14 22:05] LABS: Magnesium 2.0 mg/dL (1.6-2.3)
[2025-06-14 22:10] LABS: NT Pro B Type Natriuretic Pept 109 pg/mL (19.9-100)
[2025-06-14 22:18] VITALS: BP 145/97; PULSE 112; RESP 17; TEMP 36.6; O2SAT 96
[2025-06-14] MEDS: SODIUM CHLORIDE 0.9% IV 500 ML 999 ML IV CONT (22:37)
--- NOTE | 2025-06-14 22:43 | ECG_ITS ---
Test Date: 2025-06-14 22:46:26 Measurements Intervals [place] Rate: 104 P: 19 OK: 138 QRS: -2 QRSD: 96 T: 47 QT: 333 QTc: 439 Interpretive Statements SINUS TACHYCARDIA ABNORMAL RHYTHM ECG Compared to ECG 06/14/2025 20:02:08 No significant changes Electronically Signed On 06-15-2025 06:57:51 [employer] by Pedro Vanessa M.D.
[2025-06-14 23:06] LABS: Thyroid Stimulating Hormone 1.390 uIU/mL (0.465-4.680)
[2025-06-14 23:27] LABS: Troponin I < 0.012 ng/mL (0.000-0.034)
[2025-06-15] MEDS: BENZONATATE 100 MG CAPSULE PO (00:05)
[2025-06-15 00:12] VITALS: BP 141/98; PULSE 88; RESP 18; TEMP 36.7; O2SAT 100
== END 2025-06-15 00:13 | disposition home or self-care (01) ==
PROVIDERS: Emergency Provider Student in an Organized Health Care Education/Training Program; PCP Family Medicine
DX: R06.02 Shortness of breath (principal); R00.2 Palpitations; Z20.822 Contact with and (suspected) exposure to COVID-19; I42.9 Cardiomyopathy, unspecified; I25.10 Atherosclerotic heart disease of native coronary artery without angina pectoris; R73.03 Prediabetes; M19.90 Unspecified osteoarthritis, unspecified site; F17.210 Nicotine dependence, cigarettes, uncomplicated; Z79.82 Long term (current) use of aspirin; Z79.899 Other long term (current) drug therapy; R00.0 Tachycardia, unspecified; R94.31 Abnormal electrocardiogram [ECG] [EKG]
CPT/HCPCS: 36415; 71046; 71275; 80053; 83690; 83735; 83880; 84443; 84484; 85025; 85380; 85610; 85730; 87637; 93005; 99284; A9270; J7040; Q9967